=== PATIENT | male | born 1990 ===

== ENCOUNTER 2022-06-20 02:33 | Emergency (ER) | payer SELFPAY ==
--- OUTSIDE RECORDS SUMMARY | 2022-06-20 02:37 | XMS REPORT | Continuity of Care Document ---
:1990 Author Organization [facility] t Address [address] [facility] [address] [place] [address] Care Team Providers Name Role Phone Azeem Noriega MD Primary Care Physician TATA, TOBIN Attending Clinician Unavailable SAWYER LUZ Attending Clinician Unavailable AZEEM NORIEGA Attending Clinician Unavailable Tata PURVIS, Son Attending Clinician Wilbur Rosado MD Attending Clinician Azeem Noriega MD Attending Clinician Gem Urbina OD Attending Clinician Kacy PURVIS [facility] Attending Clinician Payers Payer Name Policy Type Policy Number Effective Date Expiration Date [facility] 2 [id number] 2020 00:00:00 PLANS Problems Condition Condition Condition Status Onset Resolution Last Treating Co mments Source Name Details Category Date Date Treatment Clinician Date Dyslipidem Dyslipidem Disease Active Dimitrios blair ia ia 3-22 Seybold 00:00: 00 Morbid Morbid Disease Active Sharon obesity obesity 9-17 Seybold 00:00: 00 Obstructiv Obstructiv Disease Active 2016-04 Overview : Sharon rowland sleep e sleep 04-22 Kaushal harris apnea apnea 00:00: g of this 00 note might be different from the original. Sever AHI 44 Family Family Disease Active Sharon history of history of 4-17 Se ybold ischemic ischemic 00:00: heart heart 00 disease disease (IHD) (IHD) Allergies, Adverse Reactions, Alerts This patient has no known allergies or adverse reactions. Social History Social Habit Start Date Stop Date Quantity Comments Source Alcohol intake 2017-04-03 2017-04-03 Current Gnosticist 00:00:00 00:00:00 non-drinker of Hospital alcohol (finding) Tobacco use and 2011-05-03 2011-05-03 Smokeless tobacco Ke lsey Seybold exposure 00:00:00 00:00:00 non-user Sex Ass[birth year] Gnostic[facility] 00:00:00 00:00:00 Hospital Smoking Status Start Date Stop Date Source Never smoked tobacco Sharon Laresyb old Medications Ordered Filled Start Stop Current Ordering Indication Dosage Frequency Signature Comments Components Source Medication Medication Date Date Medication? Clinician (SIG) Name Name Multiple Yes Take by Sharon Vitamins-Mi 3-22 mouth Seybold nerals 16:07: daily (MULTI-DUSTIN 27 MIN GUMMIES OR) Bupropion Yes [id number] TAKE 1 K elsey HCL XL 150 2-03 TABLET BY Seyb old MG OR TB24 00:00: MOUTH 00 EVERY DAY IN THE MORNING Multiple 2020-04 Yes Take by Sharon Vitamins-Mi 0-29 mouth Seybold nerals 16:21: daily (MULTI-DUSTIN 01 MIN GUMMIES OR) Bupropion 2020-04 Yes [id number] 150mg Take 1 Sharon HCL XL 150 0-13 tablet Seybold MG OR TB24 00:00: (150 mg 00 total) by mouth every morning Bupropion 2020-04 Yes [id number] 150mg Take 1 Sharon HCL XL 150 0-13 tablet Seybold MG OR TB24 00:00: (150 mg 00 total) by mouth every morning Tobramycin- 2020-04- No [id number] 1[drp] Place 1 Sharon Dexamethaso 0-04 10-12 [id number] drop into Seybold ne 00:00: 04:59 the right (TobraDex) 00 :00 eye 4 0.3-0.1 % times ophthalmic daily for Suspension 7 days Amoxicillin Yes [id number] 1{tbl} Take 1 Sharon -Pot 9-27 tablet by Seybold Clavulanate 00:00: mouth 3 (Augmentin) 00 times 500-125 MG daily oral Tablet Amoxicillin 0 Yes [id number] 1{tbl} Take 1 Sharon -Pot 9-27 tablet by Seybold Clavulanate 00:00: mouth 3 (Augmentin) 00 times 500-125 MG daily oral Tablet Amoxicillin 2020-0 Yes [id number] 1{tbl} Take 1 Sharon -Pot 9-27 tablet by Seybold Clavulanate 00:00: mouth 3 (Augmentin) 00 times 500-125 MG daily oral Tablet Amoxicillin 0 202- No [id number] 1{tbl} Take 1 Sharon -Pot 9-27 10-29 tablet by Seybold Clavulanate 00:00: 00:00 mouth 3 (Augmentin) 00 :00 times 500-125 MG daily oral Tablet FLUTICASONE 2020-0 Yes 2 sprays Ke lsey PROPIONATE, 3-16 each Seybold NASAL, 00:00: nostril (Flonase) 00 qday 50 MCG/ACT nasal Suspension FLUTICASONE 0 Yes 2 sprays Ke lsey PROPIONATE, 3-16 each Seybold NASAL, 00:00: nostril (Flonase) 00 qday 50 MCG/ACT nasal Suspension FLUTICASONE 2020-0 Yes 2 sprays Ke lsey PROPIONATE, 3-16 each Seybold NASAL, 00:00: nostril (Flonase) 00 qday 50 MCG/ACT nasal Suspension FLUTICASONE 2020-0 Yes 2 sprays Ke lsey PROPIONATE, 3-16 each Seybold NASAL, 00:00: nostril (Flonase) 00 qday 50 MCG/ACT nasal Suspension FLUTICASONE 2020-0 Yes 2 sprays Ke lsey PROPIONATE, 3-16 each Seybold NASAL, 00:00: nostril (Flonase) 00 qday 50 MCG/ACT nasal Suspension FLUTICASONE 2020-0 Yes 2 sprays Ke lsey PROPIONATE, 3-16 each Seybold NASAL, 00:00: nostril (Flonase) 00 qday 50 MCG/ACT nasal Suspension Immunizations Ordered Immunization Filled Immunization Date Status Commen ts Source Name Name Tdap- (Boostrix, 2013-07-29 Completed Sharon S eybold Adacel) 00:00:00 Meningococcal 2013-07-29 Completed [facility] Vaccine- 00:00:00 Conjugate(Menactra) Tdap- (Boostrix, 2013-07-29 Completed Sharon S eybold Adacel) 00:00:00 Meningococcal 2013-07-29 Completed [facility] Vaccine- 00:00:00 Conjugate(Menactra) Tdap- (Boostrix, 2013-07-29 Completed Sharon S eybold Adacel) 00:00:00 Meningococcal 2013-07-29 Completed [facility] Vaccine- 00:00:00 Conjugate(Menactra) Tdap- (Boostrix, 2013-07-29 Completed Sharon S eybold Adacel) 00:00:00 Meningococcal 2013-07-29 Completed [facility] Vaccine- 00:00:00 Conjugate(Menactra) Tdap- (Boostrix, 2013-07-29 Completed Sharon S eybold Adacel) 00:00:00 Meningococcal 2013-07-29 Completed [facility] Vaccine- 00:00:00 Conjugate(Menactra) Tdap- (Boostrix, 2013-07-29 Completed Sharon S eybold Adacel) 00:00:00 Meningococcal 2013-07-29 Completed [facility] Vaccine- 00:00:00 Conjugate(Menactra) Tdap- (Boostrix, 2007-03-30 Completed Sharon S eybold Adacel) 00:00:00 Tdap- (Boostrix, 2007-03-30 Completed Sharon S eybold Adacel) 00:00:00 Tdap- (Boostrix, 2007-03-30 Completed Sharon S eybold Adacel) 00:00:00 Tdap- (Boostrix, 2007-03-30 Completed Sharon S eybold Adacel) 00:00:00 Tdap- (Boostrix, 2007-03-30 Completed Sharon S eybold Adacel) 00:00:00 Tdap- (Boostrix, 2007-03-30 Completed Sharon S eybold Adacel) 00:00:00 Vital Signs Vital Name Observation Time Observation Value Comments Source Systolic blood pressure 2021-07-03 21:13:00 128 mm[Hg] Sharon Seybold Diastolic blood 2021-07-03 21:13:00 82 mm[Hg] Kelse y Seybold pressure Heart rate 2021-07-03 21:13:00 90 /min Sharon S eybold Body temperature 2021-07-03 21:13:00 36.89 Iliana Sheba ey Seybold Respiratory rate 2021-07-03 21:13:00 16 /min Sheba ey Seybold Body height 2021-07-03 21:13:00 172.7 cm Sharon S eybold Body weight 2021-07-03 21:13:00 163.749 kg Sharon S eybold BMI 2021-07-03 21:13:00 54.89 kg/m2 Sharon S eybold Systolic blood pressure 2021-02-09 21:19:00 120 mm[Hg] Sharon Seybold Diastolic blood 2021-02-09 21:19:00 80 mm[Hg] Kelse y Seybold pressure Heart rate 2021-02-09 21:19:00 86 /min Sharon S eybold Body temperature 2021-02-09 21:19:00 36.94 Iliana Sheba ey Seybold Respiratory rate 2021-02-09 21:19:00 16 /min Sheba ey Seybold Body height 2021-02-09 21:19:00 172.7 cm Sharon S eybold Body weight 2021-02-09 21:19:00 158.759 kg Sharon S eybold BMI 2021-02-09 21:19:00 53.22 kg/m2 Sharon S eybold Oxygen saturation in 2021-02-09 21:19:00 96 /min Sharon Seybold Arterial blood by Pulse oximetry Procedures This patient has no known procedures. Plan of Care Planned Activity Planned Date Details Comments Source Future Scheduled 2022-03-30 [facility] 08:53:32 (#1) [code = COVID-19 VACCINE (#1)] Future Scheduled 2022-03-30 INFLUENZA VACCINE Method [facility] Test 08:53:32 [code = INFLUENZA VACCINE] Encounters Start End Encounter Admission Attending Care Care Encounter Source Date/Time Date/Time Type Type Clinicians Facility Department ID 2022-01-03 2022-01-03 Outpatient TOBIN ESCALONA SHARON [id number] Sharon 16:15:00 16:15:00 Seybol d 2021-08-27 2021-08-27 Outpatient SUKH SHARON ULRICH [id number] Sharon 09:00:00 09:00:00 SAWYER Seybol d 2021-07-07 2021-07-07 Outpatient NORIEGA, SHARON ULRICH [id number] Sharon 00:00:00 00:00:00 AZEEM Seybol d 2021-07-03 2021-07-03 Office Tobin Escalona SANTI RODRIGUEZ [id number] Sharon 16:15:00 16:30:00 Visit MEDICAL & [id number] Seybold DIAGNOSTI [id number] C CENTER [id number] 2021-05-17 2021-05-17 Outpatient NORIEGA, SHARON ULRICH [id number] Sharon 00:00:00 00:00:00 AZEEM Seybol d 2021-03-06 2021-03-06 Outpatient LEANN SHARON LURICH [id number] Sharon 16:15:00 16:15:00 AZEEM Seybol d 2021-02-09 2021-02-09 Office SANTI Rosado [id number] Sharon 16:16:53 16:31:53 Visit Wilbur MEDICAL & [id number] Seybold DIAGNOSTI [id number] C CENTER [id number] 2021-01-24 2021-01-24 Telemedici SANTI Noriega [id number] Sharon 10:47:50 10:55:39 ne Azeem Villarreal MEDICAL & [id number] Seybold DIAGNOSTI [id number] C CENTER [id number] 2021-01-15 2021-01-15 Office SANTI Urbina [id number] Sharon 08:25:27 08:45:27 [place] [id number] Seybold DIAGNOSTI [id number] C CENTER [id number] 2021-01-08 2021-01-08 Office SANTI Urbina [id number] Sharon 08:26:15 08:46:15 Visit [place] [id number] Seybold DIAGNOSTI [id number] C CENTER [id number] 2020-12-19 2020-12-19 Office Brian Woodruff [id number] Sharon 16:06:12 16:21:12 Visit MEDICAL & [facility].1.13.13 Seybold DIAGNOSTI [id number] C CENTER [id number] Results This patient has no known results.
--- NOTE | 2022-06-20 14:52 | RAD REPORT ---
EXAM DESCRIPTION: RAD - Chest Pa And Lat (2 Views) - 06/20/2022 3:15 am CLINICAL HISTORY: Chest pain;Cough COMPARISON: None. FINDINGS: Frontal and lateral radiographic views of the chest. Cardiomediastinal silhouette: Cardiomegaly. Lungs: No consolidation, pneumothorax, or pleural effusion. Low lung volumes. Bones: No acute osseous abnormality. Upper abdomen: No abnormality identified. IMPRESSION: 1. No acute pneumonic process identified. Cardiomegaly. Electronically signed by: Ramon Hou 06/20/2022 3:32 AM AIRCRAFT INSPECTOR Due to temporary technical issues with the PACS/Fluency reporting system, reports are being signed by the in house radiologists without review as a courtesy to insure prompt reporting. The interpreting radiologist is fully responsible for the content of the report.
--- NOTE | 2022-07-05 15:33 | ER ---
Nurse's Notes [facility] Name: Emiliano Corona Age: 31 yrs Sex: Male : 1990 Arrival Date: 06/20/2022 Time: 02:39 Bed IW1 Private MD: Diagnosis: Acute upper respiratory infection, unspecified Presentation: 06/20 03:21 Chief complaint: Patient states: he has had a cough x 3 weeks, last night had temp of bb 99.2 with a headache has been using OTC medications with no relief had a [facility] appt and was given azithromycin but it is not working. Coronavirus screen: Client presents with at least one sign or symptom that may indicate coronavirus-19. Ebola Screen: No symptoms or risks identified at this time. Initial Sepsis Screen: Does the patient meet any 2 criteria? No. Patient's initial sepsis screen is negative. Does the patient have a suspected source of infection? No. Patient's initial sepsis screen is negative. Risk Assessment: Do you want to hurt yourself or someone else? Patient reports no desire to harm self or others. Onset of symptoms was May 2022. 03:21 Method Of Arrival: Ambulatory bb 03:21 Acuity: SE 4 bb Triage Assessment: 03:24 General: Appears in no apparent distress. obese, Behavior is calm, cooperative. Pain: bb Denies pain. Neuro: Level of Consciousness is awake, alert, obeys commands, Oriented to person, place, time, situation. Cardiovascular: Capillary refill < 3 seconds Patient's skin is warm and dry. Respiratory: Respiratory effort is even, unlabored, Respiratory pattern is regular. Derm: Skin is pink, warm \T\ dry. Musculoskeletal: Circulation, motion, and sensation intact. Historical: - Allergies: 03:24 No Known Allergies; bb - Home Meds: 03:24 None [Active]; bb - Immunization history:: Moderna x 2. - Social history:: Smoking status: Patient denies any tobacco usage or history of. Assessment: 03:28 Reassessment: pt verbalized understanding of and agrees to plan of care discharge bb instructions given pt ambulated with steady gait to exit accompanied by spouse. Vital Signs: 03:21 BP 142 / 83; Pulse 104; Resp 20 S; Temp 98.7(O); Pulse Ox 95% on R/A; Weight 163.29 kg bb (R); Height 5 ft. 8 in. (R); 03:21 Body Mass Index 54.74 (163.29 kg, 172.72 cm) bb ED Course: 02:39 Patient arrived in ED. ag3 02:45 Jung Morales MD is Attending Physician. bs3 03:17 XRAY Chest Pa And Lat (2 Views) In Process Unspecified. EDMS 03:24 Triage completed. bb 03:[address] band placed on Dr Morales in triage for pt evaluation and discussion of findings and bb recommendations. 03:29 No provider procedures requiring assistance completed. Patient did not have IV access bb during this emergency room visit. Administered Medications: No medications were administered Medication: 03:30 VIS not applicable for this client. bb Outcome: 03:25 Discharge ordered by . bs3 03:30 Discharged to home ambulatory, with family. bb 03:30 Condition: stable 03:30 Discharge instructions given to patient, Instructed on discharge instructions, follow up and referral plans. Demonstrated understanding of instructions, follow-up care. 03:30 Patient left the ED. bb Signatures: Dispatcher [employer] EDImelda Hinojosa, RN RN Suha Plaza ag3 Jung Morales MD MD bs3
--- NOTE | 2022-07-05 15:34 | EDPHYS ---
Physician Documentation [facility] Name: Emiliano Corona Age: 31 yrs Sex: Male : 1990 Arrival Date: 06/20/2022 Time: 02:39 Bed IW1 Private MD: ED Physician Jung Morales HPI: 06/20 02:51 This 31 yrs old Male presents to ER via Unassigned with complaints of Fever, bs3 Cough. 02:51 31-year-old male no significant past medical history presents with cough for bs3 approximately 3 weeks fever headache body aches that started today no sick contacts no recent travel he was taking Flonase for his cough but thought he was getting better however today he got worse he denies difficulty breathing he denies any nausea vomiting or chest pain. Historical: - Allergies: 03:24 No Known Allergies; bb - Home Meds: 03:24 None [Active]; bb - Immunization history:: Moderna x 2. - Social history:: Smoking status: Patient denies any tobacco usage or history of. ROS: 02:51 Constitutional: Positive for fever, no chills bs3 02:51 All other systems are negative. Exam: 02:51 Constitutional: This is a well developed, well nourished patient who is awake, alert, bs3 and in no acute distress. Head/Face: Normocephalic, atraumatic. Eyes: Pupils equal round and reactive to light, extra-ocular motions intact. Lids and lashes normal. ENT: mmm, no posterior phyarngeal erythema Neck: Trachea midline, no thyromegaly, no neck stiffness Chest/axilla: Normal chest wall appearance and motion. Nontender with no deformity. No lesions are appreciated. Cardiovascular: Tachycardic no murmur Respiratory: Lungs have equal breath sounds bilaterally, clear to auscultation, no respiratory distress Abdomen/GI: Soft, non-tender, no rebound or guarding MS/ Extremity: Pulses equal, no cyanosis. Neurovascular intact. Full, normal range of motion. Neuro: Awake and alert, GCS 15, oriented to person, place, time, and situation. Cranial nerves II-XII grossly intact. Motor strength 5/5 in all extremities. Sensory grossly intact. Psych: Awake, alert, with orientation to person, place and time. Behavior, mood, and affect are within normal limits. Vital Signs: 03:21 BP 142 / 83; Pulse 104; Resp 20 S; Temp 98.7(O); Pulse Ox 95% on R/A; Weight 163.29 kg bb (R); Height 5 ft. 8 in. (R); 03:21 Body Mass Index 54.74 (163.29 kg, 172.72 cm) bb MDM: 02:44 Patient medically screened. bs3 02:51 Differential diagnosis: viral Infection, bacterial infection, URI, bronchitis, bs3 pneumonia. Data reviewed: vital signs, nurses notes. ED course: Given that his symptoms were getting better and then got worse will rule out pneumonia with chest x-ray he likely had 1 viral illness and now has recurrent viral illness he is not high risk for decompensation from flu or COVID and therefore will not test for specific viral illnesses unlikely to be myocarditis, meningitis or other life-threatening pathology his symptoms are consistent with a viral infection. 03:12 ED course: X-ray negative for acute pneumonia as interpreted by myself Considered bs3 antibiotics but his symptoms are likely viral in nature Return precautions given. 03:24 ED course: Patient hypertensive patient notes hypertension in the past advised patient bs3 to follow-up with primary care he was tachycardic however he felt headache cough body aches I considered PE but he is otherwise no risk factors except for his obesity low risk per wells. Advised return prec.. 06/20 02:51 Order name: XRAY Chest Pa And Lat (2 Views) bs3 Administered Medications: No medications were administered Disposition Summary: 06/20/22 03:25 Discharge Ordered Location: Home bs3 Problem: new bs3 Symptoms: have improved bs3 Condition: Stable bs3 Diagnosis - Acute upper respiratory infection, unspecified bs3 Followup: bs3 - With: Private Physician - When: 48 Hours - Reason: Re-evaluation by your physician Discharge Instructions: - Discharge Summary Sheet bs3 - Upper Respiratory Infection, Adult bs3 Forms: - Work release form bs3 - Medication Reconciliation Form bs3 - Thank You Letter bs3 - Antibiotic Education bs3 - Prescription Opioid Use bs3 Signatures: Dispatcher [employer] Imelda Naylor RN RN bb Stein, Brandon, MD MD bs3
== END 2022-06-20 03:30 | disposition home or self-care (01) ==
LOC: ER 02:33
DX: J06.9 Acute upper respiratory infection, unspecified (principal)
CPT/HCPCS: 71046; 99283

== ENCOUNTER 2023-01-17 19:39 | Inpatient (IN) | payer SELFPAY ==
--- OUTSIDE RECORDS SUMMARY | 2023-01-17 20:02 | XMS REPORT | Continuity of Care Document ---
:1990 Author Organization [facility] t Address [address] [facility] [address] [place] [address] Care Team Providers Name Role Phone Asked, No Pcp Primary Care Physician Unavailable ROD HUNT Attending Clinician Unavailable TJ HUSSEIN Attending Clinician Unavailable MD LARRY Attending Clinician Unavailable ALETHEA HOROWITZ Attending Clinician Unavailable LAB90 Attending Clinician Unavailable AZEEM NORIEGA Attending Clinician Unavailable JUSTINA TREVIZO Attending Clinician Unavailable TATA, TOBIN Attending Clinician Unavailable SAWYER LUZ Attending Clinician Unavailable Tata PURVIS, Son Attending Clinician Wilbur Rosado MD Attending Clinician Azeem Noriega MD Attending Clinician Gem Urbina OD Attending Clinician Brian Woodruff MD Attending Clinician Payers Payer Name Policy Type Policy Number Effective Date Expiration Date S isela [employer] BNFT 2 [id number] 2022 00:00:00 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 2 [id number] 2020 00:00:00 PLANS Problems Condition Condition Condition Status Onset Resolution Last Treating Co mments Source Name Details Category Date Date Treatment Clinician Date Palpitatio Palpitatio Disease Active K elsey ns ns 5-16 Seybold 00:00: - 00 Externa l Prediabete Prediabete Disease Active Dimitrios blair s s 5-16 Seybold 00:00: - 00 Externa l Subclinica Subclinica Disease Active K nauny l l 5-16 Seybold hypothyroi hypothyroi 00:00: - dism dism 00 Externa l Dermatitis Dermatitis Disease Active Dimitrios blair 4-05 Seybold 00:00: - 00 Externa l Dyslipidem Dyslipidem Disease Active Dimitrios blair ia ia 3-22 Seybold 00:00: - 00 Externa l Morbid Morbid Disease Active Sharon obesity obesity 9-17 Seybold 00:00: - 00 Externa l Obstructiv Obstructiv Disease Active 2016-04 Overview : Sharon rowland sleep e sleep 04-22 Formattin Seybo ld apnea apnea 00:00: g of note Externa might be l different from the original. Sever AHI 44 Family Family Disease Active Sharon history of history of 4-17 Se ybold ischemic ischemic 00:00: - heart heart 00 Externa disease disease l (IHD) (IHD) Depression Depression Disease Active K rossy Seybold - Externa l Allergies, Adverse Reactions, Alerts Allergy Allergy Status Severity Reaction(s) Onset Inactive Treating Comm ents Source Name Type Date Date Clinician Bupropio Propensi Active Eyes Sharon n ty to 4-11 irritated Seybold adverse 00:00: , blurry - reaction 00 vision, Externa s to sensitive l drug to light. Social History Social Habit Start Date Stop Date Quantity Comments Source Gender identity 2021-07-01 Identifies as Sharon Thompson - 21:33:40 male gender External (finding) [facility] Tobacco use and 2022-07-17 2022-07-17 Smokeless tobacco Ke jodie Seybold - exposure 00:00:00 00:00:00 non-user External Education 2022-07-17 2022-07-17 18 Sharon Huynhold - 00:00:00 00:00:00 External History of Social 2018-03-01 2018-03-[address] function 00:00:00 00:00:00 Hospital Alcohol intake 2017-04-03 2017-04-03 Current Yarsanism 00:00:00 00:00:00 non-drinker of Hospital alcohol (finding) Sex Ass[birth year] At [birth year] [facility] 00:00:00 00:00:00 Hospital Smoking Status Start Date Stop Date Source Never smoked tobacco Sharon Seyb old - External Medications Ordered Filled Start Stop Current Ordering Indication Dosage Frequency Signature Comments Components Source Medication Medication Date Date Medication? Clinician (SIG) Name Name Semaglutide Yes [id number] .25mg Inject Sharon -Weight 5-16 0.25 mg Seybold Management 00:00: into the - (Wegovy) 00 skin once Mattress Stripper a 0.25 a week l MG/0.5ML subcutaneou s Solution Auto-inject or Semaglutide Yes [id number] .25mg Inject Sharon -Weight 5-16 0.25 mg Seybold Management 00:00: into the - (Wegovy) 00 skin once Mattress Stripper a 0.25 a week l MG/0.5ML subcutaneou s Solution Auto-inject or Multiple 2022- No Take by Kelse y Vitamins-Mi 4-05 04-05 mouth Seybol d nerals 15:54: 00:00 daily - (MULTI-DUSTIN 52 :00 Externa MIN GUMMIES l OR) Bupropion Yes [id number] 150mg Take 1 Sharon HCL XL 150 4-05 tablet Seybold MG OR TB24 00:00: (150 mg - 00 total) by Externa mouth l every morning Semaglutide Yes [id number] .25mg Inject Sharon -Weight 4-05 0.25 mg Seybold Management 00:00: into the - (Wegovy) 00 skin once Mattress Stripper a 0.25 a week l MG/0.5ML subcutaneou s Solution Auto-inject or Ketoconazol Yes [id number] Apply to Sharon e 2 % apply 4-05 the Seybold externally 00:00: affected - Cream 00 area twice Externa daily for l 10 days Ketoconazol 2022-0 Yes [id number] Apply to Sharon e 2 % apply 4-05 the Seybold externally 00:00: affected - Cream 00 area twice Externa daily for l 10 days Ketoconazol Yes [id number] Apply to Sharon e 2 % apply 4-05 the Seybold externally 00:00: affected - Cream 00 area twice Externa daily for l 10 days Semaglutide 2022- No [id number] .25mg Inject Sharon -Weight 4-05 05-16 0.25 mg Seybold Management 00:00: 00:00 into the - (Wegovy) 00 :00 skin once Mattress Stripper a 0.25 a week l MG/0.5ML subcutaneou s Solution Auto-inject or Ketoconazol 2022- No [id number] Apply to Sharon e 2 % apply 07-17 04-05 the Seybold externally 00:00: 00:00 affected - Cream 00 :00 area twice Externa daily for l 10 days Ketoconazol 2022- No [id number] Apply to Sharon e 2 % apply 07-17 04-05 the Seybold externally 00:00: 00:00 affected - Cream 00 :00 area twice Externa daily for l 10 days Bupropion 2022- No [id number] TAKE 1 Sharon HCL XL 150 6-23 04-05 TABLET BY Sey bold MG OR TB24 00:00: 00:00 MOUTH - 00 :00 EVERY DAY Externa IN THE l MORNING Multiple Yes Take by Sharon Vitamins-Mi 3-22 mouth Seybold nerals 16:07: daily (MULTI-DUSTIN 27 MIN GUMMIES OR) Bupropion Yes [id number] TAKE 1 K elsey HCL XL 150 2-03 TABLET BY Seyb old MG OR TB24 00:00: MOUTH 00 EVERY DAY IN THE MORNING Multiple 2020-04 Yes Take by Sharon Vitamins-Mi 0-29 mouth Seybold nerals 16:21: daily (MULTI-DUSTIN 01 MIN GUMMIES OR) Bupropion 2020-04 Yes [id number] 150mg Take 1 Sharon HCL XL 150 0-13 tablet Seybold MG OR TB24 00:00: (150 mg 00 total) by mouth every morning Bupropion 2020-04 Yes [id number] 150mg Take 1 Sharon HCL XL 150 0-13 tablet Seybold MG OR TB24 00:00: (150 mg 00 total) by mouth every morning Tobramycin- 2020-04- No [id number] 1[drp] Place 1 Sharon Dexamethaso 0-04 10-12 [id number] drop into Seybold ne 00:00: 04:59 the right (TobraDex) 00 :00 eye 4 0.3-0.1 % times ophthalmic daily for Suspension 7 days Amoxicillin Yes [id number] 1{tbl} Take 1 Sharon -Pot 9-27 tablet by Seybold Clavulanate 00:00: mouth 3 (Augmentin) 00 times 500-125 MG daily oral Tablet Amoxicillin Yes [id number] 1{tbl} Take 1 Sharon -Pot 9-27 tablet by Seybold Clavulanate 00:00: mouth 3 (Augmentin) 00 times 500-125 MG daily oral Tablet Amoxicillin Yes [id number] 1{tbl} Take 1 Sharon -Pot 9-27 tablet by Seybold Clavulanate 00:00: mouth 3 (Augmentin) 00 times 500-125 MG daily oral Tablet Amoxicillin 2020- No [id number] 1{tbl} Take 1 Sharon -Pot 9-27 10-29 tablet by Seybold Clavulanate 00:00: 00:00 mouth 3 (Augmentin) 00 :00 times 500-125 MG daily oral Tablet FLUTICASONE Yes 2 sprays Ke lsey PROPIONATE, 3-16 [...] 00 qday 50 MCG/ACT nasal Suspension FLUTICASONE Yes 2 sprays Ke lsey PROPIONATE, 3-16 each Seybold NASAL, 00:00: nostril (Flonase) 00 qday 50 MCG/ACT nasal Suspension FLUTICASONE 0 Yes 2 sprays Ke lsey PROPIONATE, 3-16 each Seybold NASAL, 00:00: nostril (Flonase) 00 qday 50 MCG/ACT nasal Suspension FLUTICASONE 2022- No 2 sprays K elsey PROPIONATE, 3-16 04-05 each Seybold NASAL, 00:00: 00:00 nostril - (Flonase) 00 :00 qday Externa 50 MCG/ACT l nasal Suspension Vital Signs Vital Name Observation Time Observation Value Comments Source Body height 2022-10-08 16:03:00 172.7 cm Sharon guzmánbold - External Body weight 2022-10-08 16:03:00 166.47 kg Sharon guzmánbold - External BMI 2022-10-08 16:03:00 55.80 kg/m2 Sharon Kathia alejandra - External Systolic blood 2022-08-27 20:09:00 140 mm[Hg] Sharon Huynhold - pressure External Diastolic blood 2022-08-27 20:09:00 75 mm[Hg] Grant Thompson - pressure External Heart rate 2022-08-27 20:09:00 90 /min Sharon guzmánbold - External Body temperature 2022-08-27 20:09:00 37.39 Iliana Sheba guzmán Seybold - External Respiratory rate 2022-08-27 20:09:00 19 /min Sheba ey Seybold - External Body height 2022-08-27 20:09:00 172.7 cm Sharon guzmánbold - External Body weight 2022-08-27 20:09:00 170.099 kg Sharon guzmánbold - External BMI 2022-08-27 20:09:00 57.02 kg/m2 Sharon guzmánbokimberly - External Oxygen saturation in 2022-08-27 20:09:00 97 /min Sharon Thompson - Arterial blood by External Pulse oximetry Systolic blood 2022-07-17 20:50:00 136 mm[Hg] Sharon Seybold - pressure External Diastolic blood 2022-07-17 20:50:00 74 mm[Hg] Kelse y Seybold - pressure External Heart rate 2022-07-17 20:50:00 87 /min Sharon S eybold - External Body temperature 2022-07-17 20:50:00 37.06 Iliana Sheba ey Seybold - External Respiratory rate 2022-07-17 20:50:00 16 /min Sheba ey Seybold - External Body height 2022-07-17 20:50:00 172.7 cm Sharon S eybold - External Body weight 2022-07-17 20:50:00 170.552 kg Sharon S eybold - External BMI 2022-07-17 20:50:00 57.17 kg/m2 Sharon S eybold - External Oxygen saturation in 2022-07-17 20:50:00 98 /min Sharon Laresybold - Arterial blood by External Pulse oximetry Systolic blood 2021-07-03 21:13:00 128 mm[Hg] Sharon Seybold pressure Diastolic blood 2021-07-03 21:13:00 82 mm[Hg] Kelse [...] 54.89 kg/m2 Sharon S eybold Systolic blood 2021-02-09 21:19:00 120 mm[Hg] Sharon Seybold pressure Diastolic blood 2021-02-09 21:19:00 80 mm[Hg] Kelse y Seybold pressure Heart rate 2021-02-09 21:19:00 86 /min Sharon S eybold Body temperature 2021-02-09 21:19:00 36.94 Iliana Sheba ey Seybold Respiratory rate 2021-02-09 21:19:00 16 /min Sheba Thompson Body height 2021-02-09 21:19:00 172.7 cm Sharon roberts Body weight 2021-02-09 21:19:00 158.759 kg Sharon roberts BMI 2021-02-09 21:19:00 53.22 kg/m2 Sharon roberts Oxygen saturation in 2021-02-09 21:19:00 96 /min Sharon Thompson Arterial blood by Pulse oximetry Procedures This patient has no known procedures. Plan of Care Planned Activity Planned Date Details Comments Source Future Scheduled 2023-01-[address] [facility] Test 19:57:09 (#1) [code = INFLUENZA VACCINE (#1)] Future Scheduled 2023-01-17 [facility] (#1) [code = COVID-19 VACCINE (#1)] Future Scheduled 2022-03-30 [facility] 08:53:32 (#1) [code = COVID-19 VACCINE (#1)] Future Scheduled 2022-03-[address] [facility] Test 08:53:32 [code = INFLUENZA VACCINE] Encounters Start End Encounter Admission Attending Care Care Encounter Source Date/Time Date/Time Type Type Clinicians Facility Department ID 2023-01-08 2023-01-08 Outpatient SHARON HUNT [id number] Sharon 00:00:00 00:00:00 ROD Huynhol yu 2022-10-18 2022-10-18 Outpatient SHARON HUSSEIN [id number] Sharon 00:00:00 00:00:00 TJ Seybol d 2022-10-17 2022-10-17 Outpatient SHARON HUSSEIN [id number] Sharon 00:00:00 00:00:00 TJ Seybol d 2022-10-16 2022-10-16 Outpatient CONNER ULRICH [id number] Sharon 00:00:00 00:00:00 MD Amina SMITHol d 2022-10-08 2022-10-08 Outpatient SHARON HUSSEIN [id number] Sharon 11:00:00 11:00:00 TJ Seybol d 2022-10-07 2022-10-07 Outpatient KEENAN SHARON ULRICH [id number] Sharon 00:00:00 00:00:00 TJ Seybol d 2022-09-13 2022-09-13 Outpatient CARLOS MANUEL ALETHEA ULRICH [id number] Sharon 16:00:00 16:00:00 Seybol d 2022-08-27 2022-08-27 Outpatient LAB90 SHARON ULRICH [id number] Sharon 15:50:00 15:50:00 Seybol d 2022-08-27 2022-08-27 Outpatient PREBRENDA, SHARON ULRICH [id number] Sharon 15:15:00 15:15:00 ROD Seybol d 2022-08-09 2022-08-09 Outpatient ALETHEA HOROWITZ [id number] Sharon 16:00:00 16:00:00 Seybol d 2022-07-30 2022-07-30 Outpatient GILBERT, SHARON ULRICH [id number] Sharon 00:00:00 00:00:00 ROD Seybol d 2022-07-30 2022-07-30 Outpatient SHARON NORIEGA [id number] Sharon 00:00:00 00:00:00 AZEEM Seybol d 2022-07-29 2022-07-29 Outpatient LAB90 SHARON ULRICH [id number] Sharon 08:30:00 08:30:00 Seybol d 2022-07-26 2022-07-26 Outpatient ALETHEA HOROWITZ [id number] Sharon 16:00:00 16:00:00 Seybol d 2022-07-26 2022-07-26 Outpatient SHARON HUNT [id number] Sharon 00:00:00 00:00:00 ROD Seybol d 2022-07-25 2022-07-25 Outpatient ALETHEA HOROWITZ [id number] Sharon 00:00:00 00:00:00 Seybol d 2022-07-23 2022-07-23 Outpatient SHARON NORIEGA [id number] Sharon 00:00:00 00:00:00 AZEEM Seybol d 2022-07-19 2022-07-19 Outpatient ALETHEA HOROWITZ SHARON ULRICH [id number] Sharon 16:30:00 16:30:00 Seybol d 2022-07-19 2022-07-19 Outpatient JOSELINE SHARON ULRIHC [id number] Sharon 15:30:00 15:30:00 JUSTINA Seybol d 2022-07-19 2022-07-19 Outpatient JOSELINE SHARON ULRICH [id number] Sharon 14:45:00 14:45:00 JUSTINA Seybol d 2022-07-17 2022-07-17 Outpatient GILBERT SHARON ULRICH [id number] Sharon 16:00:00 16:00:00 ROD Seybol d 2022-01-03 2022-01-03 Outpatient TOBIN PAYTON SHARON ULRICH [id number] Sharon 16:15:00 16:15:00 Seybol d 2021-08-27 2021-08-27 Outpatient NAUNXANDERKALYAN SHARON ULRICH [id number] Sharon 09:00:00 09:00:00 SAWYER Seybol d 2021-07-07 2021-07-07 Outpatient SHARON NORIEGA [id number] Sharon 00:00:00 00:00:00 AZEEM Seybol d 2021-07-03 2021-07-03 Office Tobin Payton MICHAEL [id number] Sharon 16:15:00 16:30:00 Visit MEDICAL & [id number] Seybold DIAGNOSTI [id number] [facility] [id number] 2021-05-17 2021-05-17 Outpatient SHARON NORIEGA [id number] Sharon 00:00:00 00:00:00 AZEEM Seybol d 2021-03-06 2021-03-06 Outpatient SHARON NORIEGA [id number] Sharon 16:15:00 16:15:00 AZEEM Seybol d 2021-02-09 2021-02-09 Office Alonzo SANTI RODRIGUEZ [id number] Sharon 16:16:53 16:31:53 Visit Wilbur [facility] & [id number] Seybold DIAGNOSTI 1.2.7.2.686 [facility] [id number] 2021-01-24 2021-01-24 Telemedici SANTI Noriega [id number] Sharon 10:47:50 10:55:39 ne Azeem Villarreal MEDICAL & [id number] Seybold DIAGNOSTI [id number] C CENTER [id number] 2021-01-15 2021-01-15 Office Carlitos SANTI MICHAEL [id number] Sharon 08:25:27 08:45:27 Visit Gem [facility] & [id number] Seybold DIAGNOSTI [id number] C CENTER [id number] 2021-01-08 2021-01-08 Office Carlitos SANTI MICHAEL [id number] Sharon 08:26:15 08:46:15 Visit Gem [facility] & [id number] Seybold DIAGNOSTI [id number] C CENTER [id number] 2020-12-19 2020-12-19 Office Brian Woodruff SANTI MICHAEL [id number] Sharon 16:06:12 16:21:12 Visit MEDICAL & [id number] Seybold DIAGNOSTI [id number] C CENTER [id number] Results This patient has no known results.
[2023-01-17 20:23] LABS: Absolute Lymphocytes (CBC) 1.8 K/uL (0.7-4.9); Hematocrit 40.6 % (39.6-49.0); Lymphocytes % 12.6 % (15.3-44.8); MPV 8.3 fL (7.6-11.3); Platelets 309 thou/uL (152-406); RBC Red Blood Cell Count 4.67 M/uL (4.33-5.43)
[2023-01-17 20:40] LABS: Albumin 3.7 g/dL (3.4-5.0); Bilirubin Total 0.8 mg/dL (0.2-1.0); Potassium 3.9 mEq/L (3.5-5.1); Protein, Total 7.8 g/dL (6.4-8.2)
[2023-01-17] MEDS ORDERED: KETOROLAC 30 MG/ML INJ ONE (20:53)
[2023-01-17] MEDS ORDERED: ONDANSETRON 4 MG/2 ML VIAL ONE (20:53)
[2023-01-17] MEDS ORDERED: NA CHLORIDE 0.9% 1,000 ML ONE ×2 (20:53→23:11)
[2023-01-17 20:56] LABS: Specific Gravity 1.025 (1.005-1.030); Urine Bacteria None Seen /HPF (<20); Urine Bilirubin NEGATIVE (Negative); Urine Blood Negative (Negative); Urine Clarity Clear (Clear); Urine Color Light-Yellow (Yellow); Urine Glucose NEGATIVE (Negative); Urine Mucus Slight /HPF (None Seen); Urine Protein NEGATIVE (Negative); Urine RBC <5 /HPF (None Seen); Urine Urobilinogen Normal (Normal)
--- NOTE | 2023-01-17 21:16 | RAD REPORT ---
EXAM DESCRIPTION: CT - Abdomen Pelvis W Contrast - 01/17/2023 9:02 pm CLINICAL HISTORY: Abdominal pain COMPARISON: none. TECHNIQUE: Computed axial tomography of the abdomen pelvis was obtained. 100 cc Isovue-300 was admin istered intravenously. Oral contrast was not requested which limits evaluation of bowel and appendix All CT scans are performed using dose optimization technique as appropriate and may include automated exposure control or mA/KV adjustment according to patient size. FINDINGS: The liver, spleen, pancreas, adrenal and kidneys appear unremarkable. There is no evidence of diverticulitis. The appendix is thickened with moderate stranding in the adjacent fat. The appendix extends medially from the cecum. No abscess. No free air. IMPRESSION: Appendicitis
[2023-01-17] MEDS ORDERED: NA CHLORIDE 0.9% 100 ML ONE (21:56)
[2023-01-17] MEDS ORDERED: PIPERACIL/TAZO 3.375 GM VIAL IV ONE (21:56)
--- NOTE | 2023-01-17 22:44 | ER ---
Nurse's Notes [facility] Name: Emiliano Corona Age: 32 yrs Sex: Male : 1990 Arrival Date: 01/17/2023 Time: 19:39 Bed 15 Private MD: Diagnosis: Unspecified acute appendicitis Presentation: 01/17 19:52 Chief complaint: Patient states: woke up this morning with abd pain all over, thought iw it was gas pain, by 1230 today I felt nauseous, pain was worse, pain is more localized to lower abdomen, diarrhea this morning , no vomiting. Coronavirus screen: At this time, the client does not indicate any symptoms associated with coronavirus-19. Ebola Screen: Patient negative for fever greater than or equal to 101.5 degrees Fahrenheit, and additional compatible Ebola Virus Disease symptoms Patient denies exposure to infectious person. Patient denies travel to an Ebola-affected area in the 21 days before illness onset. No symptoms or risks identified at this time. Initial Sepsis Screen: Does the patient meet any 2 criteria? No. Patient's initial sepsis screen is negative. Does the patient have a suspected source of infection? No. Patient's initial sepsis screen is negative. Risk Assessment: Do you want to hurt yourself or someone else? Patient reports no desire to harm self or others. Onset of symptoms was January 17, 2023. 19:52 Method Of Arrival: Ambulatory iw 19:52 Acuity: SE 3 iw Triage Assessment: 22:44 Pain: Also complains of. iw Historical: - Allergies: 19:53 No Known Allergies; iw - Home Meds: 19:53 None [Active]; iw - PMHx: 19:53 None; iw - PSHx: 19:53 None; iw - Social history:: Smoking status: Patient denies any tobacco usage or history of. - Family history:: not pertinent. Screenin:08 [facility] ED Fall Risk Assessment (Adult) History of falling in the last 3 months, mb9 including since admission No falls in past 3 months (0 pts) Confusion or Disorientation No (0 pts) Intoxicated or Sedated No (0 pts) Impaired Gait No (0 pts) Mobility Assist Device Used No (0 pt) Altered Elimination No (0 pt) Score/Fall Risk Level 0 - 2 = Low Risk Oriented to surroundings, Maintained a safe environment, Educated pt \T\ family on fall prevention, incl call for assistance when getting out of bed. Abuse screen: Denies threats or abuse. Nutritional screening: No deficits noted. Tuberculosis screening: No symptoms or risk factors identified. Assessment: 20:08 General: Appears in no apparent distress. Behavior is calm, cooperative. Pain: iw Complains of pain in abdomen Pain currently is 7 out of 10 on a pain scale. Neuro: Level of Consciousness is awake, alert, obeys commands, Oriented to person, place, time, situation, Moves all extremities. Full function. Cardiovascular: Patient's skin is warm and dry. Respiratory: Respiratory effort is even, unlabored, Respiratory pattern is regular, symmetrical. GI: Abdomen is non-distended, obese, Reports lower abdominal pain, bloating, nausea. Derm: Skin is intact, is healthy with good turgor. Musculoskeletal: Range of motion: intact in all extremities. 21:20 Reassessment: Patient appears in no apparent distress at this time. Patient and/or mb9 family updated on plan of care and expected duration. Pain level reassessed. Patient is alert, oriented x 3, equal unlabored respirations, skin warm/dry/pink. 22:30 Reassessment: Patient appears in no apparent distress at this time. Patient and/or iw family updated on plan of care and expected duration. Pain level reassessed. Patient is alert, oriented x 3, equal unlabored respirations, skin warm/dry/pink. Patient states feeling better. Vital Signs: 19:52 BP 159 / 104; Pulse 92; Resp 16; Temp 98.5; Pulse Ox 96% on R/A; Weight 163.29 kg; iw Height 5 ft. 8 in. ; Pain 7/10; 20:12 BP 119 / 65; Pulse 88; Resp 18; Pulse Ox 100% on R/A; mb9 22:44 BP 126 / 61; Pulse 89; Resp 16; Temp 98.5; Pulse Ox 100% on R/A; iw 19:52 Body Mass Index 54.74 (163.29 kg, 172.72 cm) iw 19:52 Pain Scale: Adult iw Clyde Coma Score: 20:45 Eye Response: spontaneous(4). Motor Response: obeys commands(6). Verbal Response: sp4 oriented(5). Total: 15. ED Course: 19:45 Patient arrived in ED. iw 19:53 Triage completed. iw 19:54 Arm band placed on. iw 20:08 Carmen Rosales, RN is Primary Nurse. mb9 20:09 Patient has correct armband on for positive identification. Provided Education on: IV iw insertion . 20:09 Initial lab(s) drawn, by me, sent to lab. Inserted saline lock: 22 gauge in right iw antecubital area, using aseptic technique. Blood collected. 20:12 No provider procedures requiring assistance completed. mb9 20:19 Nitesh Alvarez MD is Attending Physician. sp4 21:03 CT Abd/Pelvis - IV Contrast Only In Process Unspecified. EDMS 22:43 Manny Cochran MD is Hospitalizing Provider. sp4 22:44 Patient admitted, IV remains in place. iw Administered Medications: 21:23 Drug: Ketorolac IVP 30 mg IVP once Route: IVP; Site: right antecubital; mb9 22:45 Follow up: Response: No adverse reaction; Pain is decreased iw 21:24 Drug: NS 0.9% IV 1000 ml IV at 1 bolus Per protocol; 1000 mL bolus Route: IV; Rate: 1 mb9 bolus; Site: right antecubital; 22:45 Follow up: IV Status: Infusion continued upon admission iw 21:24 Drug: Ondansetron IVP 8 mg IVP once; over 2 minutes Route: IVP; Site: right antecubital;mb9 22:45 Follow up: Response: No adverse reaction iw 21:52 Drug: Piperacillin-Tazobactam IVPB 3.375 grams IVPB once over 60 mins; (mix in NS 100 iw mL) Route: IVPB; Infused Over: 60 mins; Site: right antecubital; 22:45 Follow up: IV Status: Completed infusion iw Medication: 20:09 VIS not applicable for this client. iw Outcome: 22:44 Decision to Hospitalize by Provider. sp4 22:44 Admitted to OR accompanied by nurse, family with patient, via wheelchair, iw 22:44 Condition: good 22:44 Discharge instructions given to patient, family, Instructed on the need for admit, 22:55 Patient left the ED. iw Signatures: Dispatcher [employer] EDMónica Coker RN RN iw Carmen Rosales, MICAELA RN mb9 Potepalov, Nitesh, MD MD sp4
--- NOTE | 2023-01-17 22:44 | EDPHYS ---
Physician Documentation [facility] Name: Emiliano Corona Age: 32 yrs Sex: Male : 1990 Arrival Date: 01/17/2023 Time: 19:39 Bed 15 Private MD: ED Physician Nitesh Alvarez HPI: 01/17 20:19 This 32 yrs old Male presents to ER via Ambulatory with complaints of sp4 Headache. 20:45 32-year-old male with no significant past medical history except prediabetes, presents sp4 with a cute onset abdominal pain starting in the morning associated with nausea and overall feeling unwell. Primary complaint is actually abdominal pain and not the headache as stated in the chief complaint section. Patient reports his abdominal pain is mostly lower bilateral and suprapubic in location has intensified throughout the day associated with nausea and one episode of diarrhea. Patient denied any fever and he took some ondansetron prior to arrival he had to check out of work early because of worsening abdominal pain. Patient is not on any prescribed medications at home has no history of prior abdominal surgery. . Historical: - Allergies: 19:53 No Known Allergies; iw - Home Meds: 19:53 None [Active]; iw - PMHx: 19:53 None; iw - PSHx: 19:53 None; iw - Social history:: Smoking status: Patient denies any tobacco usage or history of. - Family history:: not pertinent. ROS: 20:45 Constitutional: Negative for fever, chills, and weight loss, Abdomen/GI: Negative for sp4 vomiting, and constipation, there is positive diarrhea, lower abdominal pain and nausea 20:45 All other systems are negative, Exam: 20:45 Constitutional: This is a well developed, well nourished patient who is awake, alert, sp4 and in no acute distress. Head/Face: Normocephalic, atraumatic. Eyes: Pupils equal round and reactive to light, extra-ocular motions intact. Lids and lashes normal. Conjunctiva and sclera are not injected. Cornea within normal limits. Periorbital areas with no swelling, redness, or edema. ENT: Nares patent. No nasal discharge, no septal abnormalities noted. Tympanic membranes are normal and external auditory canals are clear. Oropharynx with no redness, swelling, or masses, exudates, or evidence of obstruction, uvula midline. Mucous membranes moist. Neck: Trachea midline, no thyromegaly or masses palpated, and no cervical lymphadenopathy. Supple, full range of motion without nuchal rigidity, or vertebral point tenderness. Chest/axilla: Normal chest wall appearance and motion. Nontender with no deformity. No lesions are appreciated. Cardiovascular: Regular rate and rhythm with a normal S1 and S2. No gallops, murmurs, or rubs. Normal PMI, no JVD. No pulse deficits. Respiratory: Lungs have equal breath sounds bilaterally, clear to auscultation and percussion. No rales, rhonchi or wheezes noted. No increased work of breathing, no retractions or nasal flaring. Abdomen/GI: Soft, with normal bowel sounds. No distension or tympany. No guarding or rebound. Positive for bilateral lower abdominal tenderness without rebound Back: No spinal tenderness. No costovertebral tenderness. Skin: Warm, dry with normal turgor. Normal color with no rashes, no lesions, and no evidence of cellulitis. MS/ Extremity: Pulses equal, no cyanosis. Neurovascular intact. Full, normal range of motion. Neuro: Awake and alert, GCS 15, oriented to person, place, time, and situation. Cranial nerves II-XII grossly intact. Motor strength 5/5 in all extremities. Sensory grossly intact. Psych: Awake, alert, with orientation to person, place and time. Behavior, mood, and affect are within normal limits Vital Signs: 19:52 BP 159 / 104; Pulse 92; Resp 16; Temp 98.5; Pulse Ox 96% on R/A; Weight 163.29 kg; iw Height 5 ft. 8 in. ; Pain 7/10; 20:12 BP 119 / 65; Pulse 88; Resp 18; Pulse Ox 100% on R/A; mb9 22:44 BP 126 / 61; Pulse 89; Resp 16; Temp 98.5; Pulse Ox 100% on R/A; iw 19:52 Body Mass Index 54.74 (163.29 kg, 172.72 cm) iw 19:52 Pain Scale: Adult iw Clyde Coma Score: 20:45 Eye Response: spontaneous(4). Motor Response: obeys commands(6). Verbal Response: sp4 oriented(5). Total: 15. MDM: 20:29 Patient medically screened. sp4 20:45 Differential diagnosis: Peritonitis, appendicitis, diverticulitis, gastroenteritis. sp4 Data reviewed: vital signs, nurses notes, lab test result(s), radiologic studies, CT scan. 22:41 ED course: CT revealed acute nonperforated appendicitis. . sp4 01/17 19:58 Order name: CBC with Diff; Complete Time: 21:35 iw 01/17 19:58 Order name: CMP; Complete Time: 21:35 iw 01/17 19:58 Order name: Lipase; Complete Time: 21:35 iw 01/17 20:30 Order name: Urinalysis W/Microscopic; Complete Time: 21:35 sp4 01/17 20:30 Order name: COVID-19 SARS RT PCR; Complete Time: 21:35 sp4 01/17 20:30 Order name: Influenza Screen (a \T\ B); Complete Time: 21:35 sp4 01/17 20:38 Order name: CRP; Complete Time: 04:31 sp4 01/17 20:37 Order name: CT Abd/Pelvis - IV Contrast Only; Complete Time: 21:35 sp4 01/17 19:58 Order name: IV Saline Lock; Complete Time: 20:08 iw 01/17 19:58 Order name: Labs collected and sent; Complete Time: 20:08 iw Administered Medications: 21:23 Drug: Ketorolac IVP 30 mg IVP once Route: IVP; Site: right antecubital; mb9 22:45 Follow up: Response: No adverse reaction; Pain is decreased iw 21:24 Drug: NS 0.9% IV 1000 ml IV at 1 bolus Per protocol; 1000 mL bolus Route: IV; Rate: 1 mb9 bolus; Site: right antecubital; 22:45 Follow up: IV Status: Infusion continued upon admission iw 21:24 Drug: Ondansetron IVP 8 mg IVP once; over 2 minutes Route: IVP; Site: right antecubital;mb9 22:45 Follow up: Response: No adverse reaction iw 21:52 Drug: Piperacillin-Tazobactam IVPB 3.375 grams IVPB once over 60 mins; (mix in NS 100 iw mL) Route: IVPB; Infused Over: 60 mins; Site: right antecubital; 22:45 Follow up: IV Status: Completed infusion iw Disposition Summary: 01/17/23 22:44 Hospitalization Ordered Notes: Hospitalization Status: Observation sp4 Provider: Manny Cochran sp4 Location: Telemetry/MedSurg (observation) sp4 Condition: Stable sp4 Problem: new sp4 Symptoms: have improved sp4 Bed/Room Type: Standard sp4 Room Assignment: 220(01/17/23 22:45) mw Diagnosis - Unspecified acute appendicitis sp4 Discharge Instructions: - Discharge Summary Sheet as6 Forms: - SBAR form as6 - Medication Reconciliation Form sp4 - Leadership Thank You Letter sp4 Signatures: Dispatcher [employer] Robyn Gr RN RN mw Williams, Irene, RN RN iw Breneman, Mary Beth, RN RN mb9 Potepalov, Sergey, MD MD sp4 Corrections: (The following items were deleted from the chart) 22:45 22:44 sp4 mw
[2023-01-17] MEDS ORDERED: SUCCINYLCHOLINE 20 MG/ML (10 ML) IV ONE (22:46)
[2023-01-17] MEDS ORDERED: propofoL 200 MG/20 ML VIAL IV ONE (22:52)
[2023-01-17] MEDS ORDERED: ROCURONIUM 50 MG/5 ML VIAL IV ONE (22:53)
[2023-01-17] MEDS ORDERED: LIDOCAINE 2% MPF 5 ML VIAL ONE (22:53)
[2023-01-17] MEDS ORDERED: FENTANYL CITR 250 MCG/5 ML ONE (22:54)
[2023-01-17] MEDS ORDERED: MIDAZOLAM HCL 2 MG/2 ML INJ ONE (22:54)
[2023-01-17] MEDS ORDERED: GLYCOPYRROLATE 0.2 MG/ML SYR ONE (22:54)
[2023-01-17] MEDS ORDERED: NEOSTIGMINE 1 MG/ML -10 ML VIAL ONE (22:54)
[2023-01-17] MEDS ORDERED: MORPHINE 4 MG/ML SYR IV PRN (23:24)
[2023-01-17] MEDS ORDERED: ALBUTEROL 2.5 MG/3 ML NEB SOL NEB PRN (23:24)
[2023-01-17] MEDS ORDERED: ONDANSETRON 4 MG/2 ML VIAL IV PRN (23:24)
--- NOTE | 2023-01-17 23:57 | P.BOP ---
Preoperative diagnosis: acute appendicitis, morbid obesity Postoperative diagnosis: same Primary procedure: Laparoscopic appendectomy Estimated blood loss: <10cc Specimen: chikis Findings: suppurative acute appendicitis Anesthesia: General Complications: None Transferred to: Recovery Room Condition: Good
[2023-01-18] MEDS ORDERED: ONDANSETRON 4 MG/2 ML VIAL IV PRN (00:01)
[2023-01-18] MEDS ORDERED: ONDANSETRON 4 MG/2 ML VIAL ONE (00:16)
[2023-01-18 00:50] VITALS: O2SAT 100
[2023-01-18] MEDS ORDERED: PIPER TAZO 3.375 GM in NA CHLORIDE 0.9% 100 ML IV SCH (01:00)
[2023-01-18] MEDS: D5 0.45 NS 1,000 ML IV SCH ×3 (01:25→15:03)
[2023-01-18] MEDS: HYDROCODONE/APAP 5/325 MG TAB PO PRN ×3 (01:57→18:13)
--- NOTE | 2023-01-18 02:55 | HP ---
Date of Admission: 01/17/2023 Diagnoses: Acute appendicitis, morbid obesity. History Of Present Illness: This is a case of a 32-year-old patient, who comes to us with abdominal pain and started in the periumbilical area, moved to the right lower quadrant, started since this mor jacky. Since he was not getting better, he decided to come to the ER. Imaging was done showing acute appendicitis and a surgical evaluation was requested. He denies any dysuria, hematuria, hematochezi a, or melena. Denies any recent travel out of the country. Denies any family member sick at home. He states some diarrhea and some nausea. Review of Systems: Ten points otherwise unremarkable. Medical History: Morbid obesity. Surgical History: None. Allergies: NONE. Medications: None. Social History: He does not smoke. He does not drink alcohol. Physical Examination: General: The patient is awake and alert. HEENT: Pupils are equal and reactive. Anicteric. Neck: Supple. Chest: Clear. Heart: S1, S2. Abdomen: Periumbilical and right lower quadrant tenderness with guarding and rebound. Genitalia: Deferred. Rectal: Deferred. Extremities: Good capillary refill. Neuro: Cranial nerves 2 through 12 grossly within normal limits. Laboratory Data: WBC count is 14, hemoglobin of 14, platelets of 309. Potassium is 3.9, creatinine is 0.98, total bilirubin of 0.8. Lipase 19. CAT scan of the abdomen and pelvis shows acute appendic itis. Assessment: This is a 32-year-old patient with acute appendicitis. The benefits, alternatives, and risks of laparoscopic possible open appendectomy fully explained to the patient, which include, but n ot limited to infection, bleeding, damage to adjacent structures, anesthesia complication, abscess, M I, and even . He also understands this may not relieve his symptoms. He might need more than o ne surgical intervention. He understood, signed a consent. The OR was emergently called. PLACIDO Voice ID: [id number]
--- NOTE | 2023-01-18 03:14 | OP ---
Date of Procedure: 01/17/2023 Surgeon: Manny Cochran MD Preoperative Diagnoses: Acute abdominal pain, acute appendicitis, and morbid obesity. Postoperative Diagnoses: Acute abdominal pain, acute appendicitis, and morbid obesity. Procedure: Laparoscopic appendectomy. Estimated Blood Loss: Less than 10 cc. Specimen: Appendix. Findings: Suppurative acute appendicitis. Anesthesia: General plus local. Complications: None. Indications: This is a case of a male, who comes to us with abdominal pain, found in the ER with per itonitis and abdominal pain. So, the patient was diagnosed with acute appendicitis. The benefits, a lternatives, and risks of laparoscopic possible open appendectomy fully explained, which include, but not limited to infection, bleeding, damage to adjacent structures, anesthesia complication, abscess, FL, and even . He also understands this may not relieve his symptoms. He might need more than one surgical intervention. He was also counseled on the importance of losing weight. Description Of Procedure: The patient was brought to the operating room and placed in supine positio n. Anesthesia was done without complication. Abdominal area was prepped and draped in sterile fashi on. Local anesthetic was carefully injected, then followed by sharp incision of the skin. Incision was carried down to fascia, which was opened under direct vision. Peritoneum was encountered, opened under direct vision. Vicryl #1 placed inside the fascia. Chrissy trocar was carefully introduced an d pneumoperitoneum was obtained. I placed 2 more trocars, 5 mm each one of them, in the suprapubic a nd left lower quadrant. Then, we directed our attention to the area of the appendix. We noticed an inflamed appendix. The mesoappendix was also very inflamed and some adhesions to the appendix, to th e peritoneum, to the mesentery, and to the retroperitoneum, so we have to use carefully after we iden tify the structures. We used the LigaSure to be able to go through this thick mesoappendix. We made sure the ureters were protected at all times. This is just partially retrocecal. Once we mobilized that area of the appendix, then we noticed the base of appendix to be spared from the inflammation, so we created a window in that area and transected that with an Endo ANAND non-vascular. Further hemos tasis was obtained with the help of hemoclips. Appendix removed from abdominal cavity using EndoCatc h through umbilical incision. The area was then inspected after full irrigation with several liters of saline. No bleeding. No bowel leak. At that moment, I proceeded to remove the trocars under dir ect vision, deflated pneumoperitoneum. Closed the fascia with #1 Vicryl. Irrigated subcutaneous tis golden and closed with 3-0 chromic and skin with samson. Sponge count and instrument counts were corre ct. The patient tolerated the procedure well. The patient is on his way to Recovery in stable condi tion. BRENNON/CHARLI Voice ID: [id number] Report ID: [id number]
[2023-01-18 04:58] VITALS: BMI 54.7
[2023-01-18] MEDS: PIPER TAZO 3.375 GM in NA CHLORIDE 0.9% 100 ML IV SCH ×2 (05:53→15:03)
[2023-01-18] MEDS ORDERED: INFLUENZA VACCINE (for 6+ mo) 0.5 ML DOSE IMVAC ONE (09:00)
[2023-01-18 17:23] VITALS: BP 118/79; TEMP 97.6
--- NOTE | 2023-01-18 17:34 | P.DS ---
Admission Date: 01/18/23 Discharge Date: 01/18/23 Disposition: ROUTINE DISCHARGE Discharge Condition: GOOD Brief History of Present Illness: see HPI Hospital Course: unremarkable Vital Signs/Physical Exam: Temp Pulse Resp BP Pulse Ox 97.6 F 83 18 118/79 94 01/18/23 16:00 01/18/23 16:00 01/18/23 16:00 01/18/23 16:00 01/18/23 16:00 General: Alert, Oriented x3, Cooperative HEENT: PERRLA Neck: Supple Respiratory: Normal air movement Cardiovascular: Normal pulses Gastrointestinal: Soft and benign Musculoskeletal: No swelling, No tenderness, No warmth Integumentary: No rashes, No cyanosis Neurological: Normal speech Laboratory Data at Discharge: WBC 14.00 thou/uL (4.3-10.9) H 01/17/23 20:05 Hgb 14.0 g/dL (13.6-17.9) 01/17/23 20:05 Hct 40.6 % (39.6-49.0) 01/17/23 20:05 Plt Count 309 thou/uL (152-406) 01/17/23 20:05 Sodium 136 mEq/L (136-145) 01/17/23 20:05 Potassium 3.9 mEq/L (3.5-5.1) 01/17/23 20:05 BUN 11 mg/dL (7-18) 01/17/23 20:05 Creatinine 0.98 mg/dL (0.70-1.30) 01/17/23 20:05 Glucose 117 mg/dL (74-106) H 01/17/23 20:05 Total Bilirubin 0.8 mg/dL (0.2-1.0) 01/17/23 20:05 AST 14 U/L (15-37) L 01/17/23 20:05 ALT 35 U/L (16-61) 01/17/23 20:05 Alkaline Phosphatase 84 U/L (45-117) 01/17/23 20:05 Lipase 19 U/L (13-75) 01/17/23 20:05 Physician Discharge Instructions: Keep area dry for 24h then may remove outer dressing and shower. Cover the samson with triple antibiotic ointment and bandaid Diet: AHA Activity: No lifting more than 10 lbs Followup: Manny Cochran MD [ACTIVE - CAN ADMIT] - 1 Week
== END 2023-01-18 18:35 | disposition home or self-care (01) | DRG 342 ==
LOC: ER 19:39 → 2ND 23:03 → OBSVTOIN 01-18 15:46
PROVIDERS: ADMIT Surgery; ATTEND Surgery
PROC: 0DTJ4ZZ Resection of Appendix, Percutaneous Endoscopic Approach (ICD-10-PCS; principal; 2023-01-17 23:00)
DX: K35.80 Unspecified acute appendicitis (principal); Z68.43 Body mass index [BMI] 50.0-59.9, adult; E66.01 Morbid (severe) obesity due to excess calories; Z20.822 Contact with and (suspected) exposure to COVID-19
CPT/HCPCS: 36415; 74177; 80053; 81001; 83690; 85025; 86140; 87635; 87804; 88304; 94010; 96365; 96375; 99285; G0378; J2001; J2250; J2405; J2543; J2704; J2710; J3010; J7030; J7799; Q9967

== ENCOUNTER 2023-02-18 11:44 | Emergency (ER) | payer SELFPAY ==
--- OUTSIDE RECORDS SUMMARY | 2023-02-18 11:48 | XMS REPORT | Continuity of Care Document ---
:1990 Author Organization [facility] t Address [address] [place] [address] Care Team Providers Name Role Phone Asked, [...] Expiration Date S isela [employer] BNFT 2 [id number] 2022 00:00:00 SYSTEM/* ADDISON CHARTER 2 [id number] 2020 00:00:00 PLANS Problems Condition Condition Condition [...] 00:00:00 Hospital Alcohol intake 2017-04-03 2017-04-03 Current [facility] 00:00:00 00:00:00 non-drinker of Hospital alcohol (finding) Sex Ass[birth year] At [birth year] [facility] 00:00:00 00:00:00 Hospital Smoking Status Start Date Stop Date Source Never smoked tobacco Sharon Seyb old - External Medications Ordered Filled Start Stop Current Ordering Indication Dosage Frequency Signature Comments Components Source Medication Medication Date Date Medication? 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 a 0.25 a week l MG/0.5ML subcutaneou s Solution Auto-inject or Multiple 2022- No Take by Kelse y Vitamins-Mi 4-05 04-05 mouth Seybol d nerals 15:54: 00:00 daily - (MULTI-DUSTIN 52 :00 Externa MIN GUMMIES l OR) Bupropion Yes [id number] 150mg Take 1 Sharon HCL XL 150 4-05 tablet Seybold MG OR TB24 00:00: (150 mg - 00 total) by Externa mouth l every morning Semaglutide Yes [id number] .25mg Inject Sharon -Weight 4-05 0.25 mg Seybold Management 00:00: into the - (Wegovy) 00 skin once 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 a 0.25 a week l MG/0.5ML subcutaneou s Solution Auto-inject or Ketoconazol Yes [id number] Apply to Sharon e 2 % apply 4-05 the Seybold externally 00:00: affected - Cream 00 area twice Externa daily for l 10 days Ketoconazol 2022-0 Yes [id number] Apply to Sharon e 2 % apply 4-05 the Seybold externally 00:00: affected - Cream 00 area twice Externa daily for l 10 days Ketoconazol Yes [id number] Apply to Sharon e 2 % apply 4-05 the Seybold externally 00:00: affected - Cream 00 area twice Externa daily for l 10 days Semaglutide 2022- No [id number] .25mg Inject Sharon -Weight 4-05 05-16 0.25 mg Seybold Management 00:00: 00:00 into the - (Wegovy) 00 :00 skin once 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 a 0.25 a week l MG/0.5ML subcutaneou s Solution Auto-inject or Ketoconazol 2022- No [id number] Apply to Sharon e 2 % apply 07-17 04-05 the Seybold externally 00:00: 00:00 affected - Cream 00 :00 area twice Externa daily for l 10 days Ketoconazol 2022- No [id number] Apply to Sharon e 2 % apply 07-17 04-05 the Seybold externally 00:00: 00:00 affected - Cream 00 :00 area twice Externa daily for l 10 days Bupropion 2022- No [id number] TAKE 1 Sharon HCL XL 150 6-23 04-05 TABLET BY Sey bold MG OR TB24 00:00: 00:00 MOUTH - 00 :00 EVERY DAY Externa IN THE l MORNING Multiple Yes Take by Sharon Vitamins-Mi 3-22 mouth Seybold nerals 16:07: daily (MULTI-DUSTIN 27 MIN GUMMIES OR) Bupropion Yes [id number] TAKE 1 K elsey HCL XL 150 2-03 TABLET BY Seyb old MG OR TB24 00:00: MOUTH 00 EVERY DAY IN THE MORNING Multiple 2020-04 Yes Take by Sharon Vitamins-Mi 0-29 mouth Seybold nerals 16:21: daily (MULTI-DUSTIN 01 MIN GUMMIES OR) Bupropion 2020-04 Yes [id number] 150mg Take 1 Sharon HCL XL 150 0-13 tablet Seybold MG OR TB24 00:00: (150 mg 00 total) by mouth every morning Bupropion 2020-04 Yes [id number] 150mg Take 1 Sharon HCL XL 150 0-13 tablet Seybold MG OR TB24 00:00: (150 mg 00 total) by mouth every morning Tobramycin- 2020-04- No [id number] 1[drp] Place 1 Sharon Dexamethaso 0-04 10-12 [id number] drop into Seybold ne 00:00: 04:59 the right (TobraDex) 00 :00 eye 4 0.3-0.1 % times ophthalmic daily for Suspension 7 days Amoxicillin Yes [id number] 1{tbl} Take 1 Sharon -Pot 9-27 tablet by Seybold Clavulanate 00:00: mouth 3 (Augmentin) 00 times 500-125 MG daily oral Tablet Amoxicillin Yes [id number] 1{tbl} Take 1 Sharon -Pot 9-27 tablet by Seybold Clavulanate 00:00: mouth 3 (Augmentin) 00 times 500-125 MG daily oral Tablet Amoxicillin Yes [id number] 1{tbl} Take 1 Sharon -Pot 9-27 tablet by Seybold Clavulanate 00:00: mouth 3 (Augmentin) 00 times 500-125 MG daily oral Tablet Amoxicillin 2020- No [id number] 1{tbl} Take 1 Sharon -Pot 9-27 10-29 [...] Planned Date Details Comments Source Future Scheduled 2023-02-07 INFLUENZA VACCINE Method [facility] Test 14:50:46 (#1) [code = INFLUENZA VACCINE (#1)] Future Scheduled 2023-02-07 [facility]:50[facility] (#1) [code = COVID-19 VACCINE (#1)] Future Scheduled 2023-01-17 INFLUENZA VACCINE [facility] Test 19:57:09 (#1) [code = INFLUENZA VACCINE (#1)] Future Scheduled 2023-01-17 [facility] 19:57:09 (#1) [code = COVID-19 VACCINE (#1)] Future Scheduled 2022-03-30 [facility] Test 08:53:32 (#1) [code = COVID-19 VACCINE (#1)] Future Scheduled 2022-03-30 INFLUENZA VACCINE [facility] Test 08:53:32 [code = INFLUENZA VACCINE] Encounters Start End Encounter Admission Attending Care Care Encounter Source Date/Time Date/Time Type Type Clinicians Facility Department ID 2023-01-08 2023-01-08 Outpatient SHARON HUNT [id number] Sharon 00:00:00 00:00:00 ROD Seybol d 2022-10-18 2022-10-18 Outpatient SHARON HUSSEIN [id number] Sharon 00:00:00 00:00:00 TJ Seybol d 2022-10-17 2022-10-17 Outpatient SHARON HUSSEIN [id number] Sharon 00:00:00 00:00:00 TJ Seybol d 2022-10-162022-10-16 [id number] Sharon 00:00:00 00:00:00 MD LUIS Seybol d 2022-10-08 2022-10-08 Outpatient SHARON HUSSEIN [id number] Sharon 11:00:00 11:00:00 TJ Seybol d 2022-10-07 2022-10-07 Outpatient SHARON HUSSEIN [id number] Sharon 00:00:00 00:00:00 TJ Seybol d 2022-09-13 2022-09-13 Outpatient ALETHEA HOROWITZ [id number] Sharon 16:00:00 16:00:00 Seybol d 2022-08-27 2022-08-27 Outpatient LAB90 SHARON ULRICH [id number] Sharon 15:50:00 15:50:00 Seybol d 2022-08-27 2022-08-27 Outpatient SHARON HUNT [id number] Sharon 15:15:00 15:15:00 ROD Seybol d 2022-08-09 2022-08-09 Outpatient ALETHEA HOROWITZ [id number] Sharon 16:00:00 16:00:00 Seybol d 2022-07-30 2022-07-30 Outpatient SHARON HUNT [id number] Sharon 00:00:00 00:00:00 ROD Seybol d 2022-07-30 2022-07-30 Outpatient SHARON NORIEGA [id number] Sharon 00:00:00 00:00:00 AZEEM Seybol d 2022-07-29 2022-07-29 Outpatient LAB90 SHARON ULRICH [id number] Sharon 08:30:00 08:30:00 Seybol d 2022-07-26 2022-07-26 Outpatient ALETHEA HOROWITZ [id number] Sharon 16:00:00 16:00:00 Seybol d 2022-07-26 2022-07-26 Outpatient SHARON HUNT [id number] Sharon 00:00:00 00:00:00 ROD Seybol d 2022-07-25 2022-07-25 Outpatient ALETHEA HOROWITZ SHARON ULRICH [id number] Sharon 00:00:00 00:00:00 Seybol d 2022-07-23 2022-07-23 Outpatient SHARON NORIEGA [id number] Sharon 00:00:00 00:00:00 AZEEM Seybol d 2022-07-19 2022-07-19 Outpatient ALETHEA HOROWITZ SHARON ULRICH [id number] Sharon 16:30:00 16:30:00 Seybol d 2022-07-19 2022-07-19 Outpatient PARTHAMARLI SHARON ULRICH [id number] Sharon 15:30:00 15:30:00 JUSTINA Seybol d 2022-07-19 2022-07-19 Outpatient TYMarco SHARON [facility]LR[facility] [id number] Sharon 14:45:00 14:45:00 JUSTINA Seybol d 2022-07-17 2022-07-17 Outpatient PENNYKathiaSHARON [id number] Sharon 16:00:00 16:00:00 ROD Seybol d 2022-01-03 2022-01-03 Outpatient TOBIN PAYTON SHARON [facility]LRICH [id number] Sharon 16:15:00 16:15:00 Seybol d 2021-08-27 2021-08-27 Outpatient YEHUDAKALYANSHARON [id number] Sharon 09:00:00 09:00:00 SAWYER Seybol d 2021-07-07 2021-07-07 Outpatient SHARON NORIEGA [id number] Sharon 00:00:00 00:00:00 AZEEM Seybol d 2021-07-03 2021-07-03 Office Tboin Payton [id number] Sharon 16:15:00 16:30:00 Visit MEDICAL & [id number] Seybold DIAGNOSTI [id number] C CENTER [id number] 2021-05-17 2021-05-17 Outpatient SHARON NORIEGA [id number] Sharon 00:00:00 00:00:00 AZEEM Seybol d 2021-03-06 2021-03-06 Outpatient LEANN SHARON [facility]LRICH [id number] Sharon 16:15:00 16:15:00 AZEME Huynhol d 2021-02-09 2021-02-09 Office SANTI Rosado [id number] Sharon 16:16:53 16:31:53 Visit [facility] & [id number] Seybold DIAGNOSTI [id number] C CENTER [id number] 2021-01-24 2021-01-24 Telemedici SANTI Noriega [id number] Sharon 10:47:50 10:55:39 ne Azeem Villarreal MEDICAL & [id number] Seybold DIAGNOSTI [id number] C CENTER [id number] 2021-01-15 2021-01-15 Office SANTI Urbina [id number] Sharon 08:25:27 08:45:27 Visit [facility] & [id number] Seybold DIAGNOSTI [id number] C CENTER [id number] 2021-01-08 2021-01-08 Office SANTI Urbina [id number] Sharon 08:26:15 08:46:15 Visit [facility] & [id number] Seybold DIAGNOSTI [id number] C CENTER [id number] 2020-12-19 2020-12-19 Office Brian Woodruff K SANTI BEND [id number] Sharon 16:06:12 16:21:12 Visit MEDICAL & [id number] Seybold DIAGNOSTI [id number] C CENTER [id number] Results This patient has no known results.
[2023-02-18 12:23] LABS: Absolute Lymphocytes (CBC) 1.8 K/uL (0.7-4.9); Hematocrit 40.8 % (39.6-49.0); Lymphocytes % 23.8 % (15.3-44.8); MPV 8.4 fL (7.6-11.3); Platelets 272 thou/uL (152-406); RBC Red Blood Cell Count 4.69 M/uL (4.33-5.43)
[2023-02-18 12:45] LABS: Albumin 3.5 g/dL (3.4-5.0); Bilirubin Direct 0.2 mg/dL (0-0.2); Bilirubin Indirect, Calculated 0.6 mg/dL (0.2-0.8); Bilirubin Total 0.8 mg/dL (0.2-1.0); Potassium 3.9 mEq/L (3.5-5.1); Protein, Total 7.7 g/dL (6.4-8.2); Troponin High Sensitivity 4.9 pg/mL (<58.9)
[2023-02-18 12:56] LABS: SARS-COV-2 RT PCR NEGATIVE (NEGATIVE)
--- NOTE | 2023-02-18 13:03 | ER ---
Nurse's Notes [facility] Name: Emiliano Corona Age: 32 yrs Sex: Male : 1990 Arrival Date: 02/18/2023 Time: 11:44 Bed 15 Private MD: Diagnosis: Nonspecific chest pain, upper respiratory congestion Presentation: 02/18 11:54 Chief complaint: Patient states: Chest pain, dizziness and shortness of breath, onset nj1 about 2 hours ago. Dizziness has gotten better, chest pain is about the same since it started. No shortness of breath at this time. 11:54 Coronavirus screen: Vaccine status: Patient reports being unvaccinated. Ebola Screen: nj1 Patient denies travel to an Ebola-affected area in the 21 days before illness onset. Initial Sepsis Screen: Does the patient meet any 2 criteria? No. Patient's initial sepsis screen is negative. Does the patient have a suspected source of infection? No. Patient's initial sepsis screen is negative. Risk Assessment: Do you want to hurt yourself or someone else? Patient reports no desire to harm self or others. Onset of symptoms was February 18, 2023 at 10:00. 11:54 Method Of Arrival: Ambulatory nj1 11:54 Acuity: SE 2 nj1 Historical: - Allergies: 12:01 No Known Allergies; nj1 - PMHx: 12:01 None; nj1 - PSHx: 12:01 Appendectomy; Tonsillectomy; nj1 - Immunization history:: Client reports having NOT received the Covid vaccine. - Social history:: Smoking status: Patient denies any tobacco usage or history of. Screenin:03 [facility] ED Fall Risk Assessment (Adult) Score/Fall Risk Level 0 - 2 = Low Risk nj1 Oriented to surroundings, Maintained a safe environment, Hourly rounding (assess needs \T\ fall precautionary measures) done. Abuse screen: Denies threats or abuse. Denies injuries from another. Nutritional screening: No deficits noted. Tuberculosis screening: No symptoms or risk factors identified. Assessment: 12:02 General: Appears in no apparent distress. uncomfortable, Behavior is calm, cooperative, nj1 appropriate for age. Pain: Complains of pain in chest Pain does not radiate. Pain currently is 3 out of 10 on a pain scale. Pain began suddenly, 2 hours ago. Neuro: Level of Consciousness is awake, alert, obeys commands, Oriented to person, place, time, situation. Cardiovascular: Patient's skin is warm and dry. Chest pain. Respiratory: Airway is patent Respiratory effort is even, unlabored. 12:55 Reassessment: Patient appears in no apparent distress at this time. Patient and/or nj1 family updated on plan of care and expected duration. Pain level reassessed. Patient is alert, oriented x 3, equal unlabored respirations, skin warm/dry/pink. Patient states feeling better. Patient states symptoms have improved. 13:45 Reassessment: Patient appears in no apparent distress at this time. Patient and/or nj1 family updated on plan of care and expected duration. Pain level reassessed. Patient is alert, oriented x 3, equal unlabored respirations, skin warm/dry/pink. Patient denies pain at this time. Patient states feeling better. Patient states symptoms have improved. Vital Signs: 11:54 BP 135 / 70; Pulse 89; Resp 18; Temp 98.7; Pulse Ox 96% on R/A; Weight 163.29 kg; nj1 Height 5 ft. 8 in. ; Pain 3/10; 12:52 BP 123 / 75; Pulse 84; Resp 23; Pulse Ox 96% on R/A; Pain 1/10; nj1 13:38 BP 111 / 68; Pulse 86; Resp 22; Pulse Ox 93% on R/A; nj1 11:54 Body Mass Index 54.74 (163.29 kg, 172.72 cm) nj1 11:54 Pain Scale: Adult [facility] 12:52 Pain Scale: Adult [facility] ED Course: 11:43 Inserted saline lock: 20 gauge in right antecubital area, using aseptic technique. ca1 Blood collected. 11:47 Patient arrived in ED. im 11:50 Jin Choi MD is Attending Physician. sp3 11:53 Claire Martinez, MICAELA is Primary Nurse. nj1 12:01 Triage completed. nj1 12:02 Arm band placed on. nj1 12:03 Patient has correct armband on for positive identification. Bed in low position. Call ca1 light in reach. Provided Education on: call light, fall precautions. Client placed on continuous cardiac and pulse oximetry monitoring. NIBP monitoring applied. 12:03 Patient maintains SpO2 saturation greater than 95% on room air. nj1 13:03 XRAY Chest (1 view) In Process Unspecified. EDMS 13:45 No provider procedures requiring assistance completed. IV discontinued, intact, nj1 bleeding controlled. Administered Medications: No medications were administered Medication: 13:46 VIS not applicable for this client. nj1 Outcome: 13:02 Discharge ordered by . sp3 13:45 Discharged to home ambulatory, nj1 13:45 Condition: stable 13:45 Discharge instructions given to patient, Instructed on discharge instructions, follow up and referral plans. Demonstrated understanding of instructions, follow-up care, 13:46 Patient left the ED. nj1 Signatures: Dispatcher [employer] EDMS Jin Choi MD MD sp3 Claire Martinez RN RN nj1 Sadaf Ruvalcaba Corrections: (The following items were deleted from the chart) 13:45 13:45 Reassessment: Patient appears in no apparent distress at this time. Patient nj1 and/or family updated on plan of care and expected duration. Pain level reassessed. Patient is alert, oriented x 3, equal unlabored respirations, skin warm/dry/pink. Patient denies pain at this time. nj1
--- NOTE | 2023-02-18 13:03 | EDPHYS ---
Physician Documentation [facility] Name: Emiliano Corona Age: 32 yrs Sex: Male : 1990 Arrival Date: 02/18/2023 Time: 11:44 Bed 15 Private MD: ED Physician Jin Choi HPI: 02/18 12:27 This 32 yrs old Male presents to ER via Ambulatory with complaints of Chest Tightness, sp3 Dizziness. 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 Patient also states that it is occasionally difficult to "take a breath". He denies prior cardiac history, headache, neck pain, trauma, back pain, abdominal pain, nausea, vomiting, diarrhea, syncope, near syncope, or any other signs or symptoms at this time. He also denies known sick contacts or travel history.. Historical: - Allergies: 12:01 No Known Allergies; nj1 - PMHx: 12:01 None; nj1 - PSHx: 12:01 Appendectomy; Tonsillectomy; nj1 - Immunization history:: Client reports having NOT received the Covid vaccine. - Social history:: Smoking status: Patient denies any tobacco usage or history of. ROS: 12:28 Constitutional: Negative for fever, chills, and weight loss, Eyes: Negative for injury, sp3 pain, redness, and discharge, ENT: Negative for injury, pain, and discharge, Neck: Negative for injury, pain, and swelling, Abdomen/GI: Negative for abdominal pain, nausea, vomiting, diarrhea, and constipation, Back: Negative for injury and pain, MS/Extremity: Negative for injury and deformity, Skin: Negative for injury, rash, and discoloration, Neuro: Negative for headache, weakness, numbness, tingling, and seizure, Psych: Negative for depression, anxiety, suicide ideation, homicidal ideation, and hallucinations, Allergy/Immunology: Negative for hives, rash, and allergies, Endocrine: Negative for neck swelling, polydipsia, polyuria, polyphagia, and marked weight changes, Hematologic/Lymphatic: Negative for swollen nodes, abnormal bleeding, and unusual bruising, 12:28 All other systems are negative, Exam: 12:35 Constitutional: This is a well developed, well nourished patient who is awake, alert, sp3 and in no acute distress. Head/Face: Normocephalic, atraumatic. Eyes: Pupils equal round and reactive to light, extra-ocular motions intact. Lids and lashes normal. Conjunctiva and sclera are non-icteric and not injected. Cornea within normal limits. Periorbital areas with no swelling, redness, or edema. ENT: Nares patent. No nasal discharge, no septal abnormalities noted. External auditory canals are clear. Oropharynx with no redness, swelling, or masses, exudates, or evidence of obstruction, uvula midline. Mucous membranes moist. Neck: Trachea midline, no thyromegaly or masses palpated, and no cervical lymphadenopathy. Supple, full range of motion without nuchal rigidity, or vertebral point tenderness. No Meningismus. Chest/axilla: Normal chest wall appearance and motion. Nontender with no deformity. No lesions are appreciated. Cardiovascular: Regular rate and rhythm with a normal S1 and S2. No gallops, murmurs, or rubs. Normal PMI, no JVD. No pulse deficits. Respiratory: Lungs have equal breath sounds bilaterally, clear to auscultation and percussion. No rales, rhonchi or wheezes noted. No increased work of breathing, no retractions or nasal flaring. Abdomen/GI: Soft, non-tender, with normal bowel sounds. No distension or tympany. No guarding or rebound. No evidence of tenderness throughout. Back: No spinal tenderness. No costovertebral tenderness. Full range of motion. Skin: Warm, dry with normal turgor. Normal color with no rashes, no lesions, and no evidence of cellulitis. MS/ Extremity: Pulses equal, no cyanosis. Neurovascular intact. Full, normal range of motion. Neuro: Awake and alert, GCS 15, oriented to person, place, time, and situation. Cranial nerves II-XII grossly intact. Motor strength 5/5 in all extremities. Sensory grossly intact. Cerebellar exam normal. Normal gait. Psych: Awake, alert, with orientation to person, place and time. Behavior, mood, and affect are within normal limits. 12:35 ECG was reviewed by the Attending Physician. EKG demonstrates normal sinus rhythm at 70 bpm with normal intervals, normal QRS, normal axis, normal ST/T-segment's without evidence of acute ischemia. Vital Signs: 11:54 BP 135 / 70; Pulse 89; Resp 18; Temp 98.7; Pulse Ox 96% on R/A; Weight 163.29 kg; nj1 Height 5 ft. 8 in. ; Pain 3/10; 12:52 BP 123 / 75; Pulse 84; Resp 23; Pulse Ox 96% on R/A; Pain 1/10; nj1 13:38 BP 111 / 68; Pulse 86; Resp 22; Pulse Ox 93% on R/A; nj1 11:54 Body Mass Index 54.74 (163.29 kg, 172.72 cm) nj1 11:54 Pain Scale: Adult nj1 12:52 Pain Scale: Adult nj1 MDM: 12:02 Patient medically screened. sp3 12:35 Data reviewed: vital signs, nurses notes, lab test result(s), EKG, radiologic studies. sp3 ED course: 32-year-old male with chest pain, episodic shortness of breath and upper respiratory congestion. Differential diagnosis includes viral upper respiratory infection, COVID-19, influenza too much less likelihood acute coronary syndrome, PE, pneumonia. Clinically have ruled out aortic pathology including dissection and aneurysm. Will obtain laboratory values including D-dimer, troponin and chest x-ray which is pending. EKG demonstrates no significant abnormalities. Disposition likely home with PCP follow-up.. 13:01 ED course: Chest x-ray and all laboratory values reviewed. D-dimer and troponin are sp3 both negative. Patient is resting comfortably no acute distress. We will safely discharge patient home at this time with PCP follow-up.. 02/18 12:02 Order name: Basic Metabolic Panel; Complete Time: 13:00 sp3 02/18 12:02 Order name: CBC with Diff; Complete Time: 13:00 sp3 02/18 12:02 Order name: D-Dimer; Complete Time: 13:00 sp3 02/18 12:02 Order name: LFT's; Complete Time: 13:00 sp3 02/18 12:02 Order name: Troponin HS; Complete Time: 13:00 sp3 02/18 12:02 Order name: COVID-19/FLU A+B; Complete Time: 13:00 sp3 02/18 12:02 Order name: XRAY Chest (1 view); Complete Time: 13:19 sp3 02/18 12:02 Order name: EKG; Complete Time: 12:02 sp3 02/18 12:02 Order name: Cardiac monitoring; Complete Time: 12:16 sp3 02/18 12:02 Order name: EKG - Nurse/Tech; Complete Time: 12:16 sp3 02/18 12:02 Order name: IV Saline Lock; Complete Time: 12:16 sp3 02/18 12:02 Order name: Labs collected and sent; Complete Time: 12:16 sp3 02/18 12:02 Order name: O2 Per Protocol; Complete Time: 12:16 sp3 02/18 12:02 Order name: O2 Sat Monitoring; Complete Time: 12:17 sp3 Administered Medications: No medications were administered Disposition Summary: 02/18/23 13:02 Discharge Ordered Notes: Location: Home sp3 Condition: Stable sp3 Diagnosis - Nonspecific chest pain, upper respiratory congestion sp3 Followup: sp3 - With: Private Physician - When: Upon discharge from the Emergency Department - Reason: Continuance of care Discharge Instructions: - Discharge Summary Sheet sp3 - Nonspecific Chest Pain, Adult sp3 Forms: - Medication Reconciliation Form sp3 - Thank You Letter sp3 - Antibiotic Education sp3 - Prescription Opioid Use sp3 - Patient Portal Instructions sp3 - Leadership Thank You Letter sp3 Signatures: Dispatcher [employer] EDJin Enamorado MD MD sp3 Claire Martinez RN RN nj1
--- NOTE | 2023-02-18 13:14 | RAD REPORT ---
EXAM DESCRIPTION: RAD - Chest Single View - 02/18/2023 1:02 pm CLINICAL HISTORY: CHEST PAIN Chest pain. COMPARISON: Chest Pa And Lat (2 Views) dated 06/20/2022 FINDINGS: Portable technique limits examination quality. The lungs are grossly clear. The heart is mildly prominent. No displaced fractures. IMPRESSION: No acute intrathoracic process suspected.
[2023-02-18 13:57] VITALS: TEMP 98.7
[2023-02-18 14:01] VITALS: BP 111/68; O2SAT 93
--- NOTE | 2023-02-22 14:26 | EKG ---
Test Date: 2023-02-18 Test Time: 12:58:44 Plush Weaver: LACI MEASUREMENT RESULTS: Intervals: Rate: 78 AK: 132 QRSD: 90 QT: 380 QTc: 433 [place]: P: 39 AK: 132 QRS: 56 T: 17 INTERPRETIVE STATEMENTS: Normal sinus rhythm Normal ECG No previous ECG available for comparison Electronically Signed On 02-22-23 14:14:47 [employer] by Joe Gonzalez
== END 2023-02-18 13:46 | disposition home or self-care (01) ==
LOC: ER 11:44
DX: R07.89 Other chest pain (principal); R09.89 Other specified symptoms and signs involving the circulatory and respiratory systems; Z11.52 Encounter for screening for COVID-19
CPT/HCPCS: 0240U; 36415; 71045; 80048; 80076; 84484; 85025; 85379; 93005; 99284

== ENCOUNTER → 2023-04-02 | Emergency (ER) | payer SELFPAY ==
--- NOTE | 2023-04-02 16:54 | ER ---
Nurse's Notes [facility] Name: Emiliano Corona Age: 32 yrs Sex: Male : 1990 Arrival Date: 04/02/2023 Time: 16:30 Bed IW1 Private MD: Diagnosis: Cellulitis of face;Chronic sinusitis, unspecified Presentation: 04/02 16:42 Chief complaint: Patient states: NASAL PAIN, NASAL CONGESTION, SINUS PAIN AND bp CONGESTION x1 WK. Coronavirus screen: At this time, the client does not indicate any symptoms associated with coronavirus-19. Ebola Screen: No symptoms or risks identified at this time. Initial Sepsis Screen: Does the patient meet any 2 criteria? No. Patient's initial sepsis screen is negative. Does the patient have a suspected source of infection? No. Patient's initial sepsis screen is negative. Risk Assessment: Do you want to hurt yourself or someone else? Patient reports no desire to harm self or others. Onset of symptoms is unknown. 16:42 Method Of Arrival: Ambulatory bp 16:42 Acuity: SE 3 bp Triage Assessment: 16:43 General: Appears in no apparent distress. uncomfortable, obese, Behavior is bp cooperative, appropriate for age, anxious. Pain: Complains of pain in nose. Historical: - Allergies: 16:43 No Known Allergies; bp - PSHx: 16:43 Appendectomy; Tonsillectomy; bp - Immunization history:: Adult Immunizations up to date. - Social history:: Smoking status: Patient denies any tobacco usage or history of. Screenin:44 [facility] ED Fall Risk Assessment (Adult) History of falling in the last 3 months, bp including since admission No falls in past 3 months (0 pts). Abuse screen: Denies threats or abuse. Denies injuries from another. Nutritional screening: No deficits noted. Tuberculosis screening: No symptoms or risk factors identified. Assessment: 17:30 Reassessment: No changes from previously documented assessment. Patient and/or family ll1 updated on plan of care and expected duration. Pain level reassessed. Patient is alert, oriented x 3, equal unlabored respirations, skin warm/dry/pink. Vital Signs: 16:42 BP 165 / 96; Pulse 96; Resp 16; Temp 98.5; Pulse Ox 99% ; Weight 156.49 kg; Height 5 bp ft. 8 in. ; 16:42 Body Mass Index 52.46 (156.49 kg, 172.72 cm) bp ED Course: 16:34 Patient arrived in ED. rg4 16:35 Dionte Weiner MD is Attending Physician. ec2 16:43 Triage completed. bp 16:43 Arm band placed on. bp 16:44 Patient has correct armband on for positive identification. bp 17:30 Provided Education on: n/a. ll1 17:30 No provider procedures requiring assistance completed. Patient did not have IV access ll1 during this emergency room visit. Administered Medications: No medications were administered Medication: 17:30 VIS not applicable for this client. ll1 Outcome: 16:54 Discharge ordered by . ec2 17:30 Discharged to home ambulatory, ll1 17:30 Condition: stable 17:30 Discharge instructions given to patient, Instructed on discharge instructions, follow up and referral plans. medication usage, Demonstrated understanding of instructions, follow-up care, medications, Prescriptions given X 1, 17:31 Patient left the ED. ll1 Signatures: Jaycee Catalan rg4 Max Diaz, RN RN bp Adrian Mcdonadl RN RN ll1 Dionte Weiner MD MD ec2
--- NOTE | 2023-04-02 16:54 | EDPHYS ---
Physician Documentation [facility] Name: Emiliano Corona Age: 32 yrs Sex: Male : 1990 Arrival Date: 04/02/2023 Time: 16:30 Bed IW1 Private MD: ED Physician Dionte Weiner HPI: 04/02 16:55 This 32 yrs old Male presents to ER via Ambulatory with complaints of Nose ec2 Problem. 16:55 Patient arrives today due to concern for induration to the nose. Patient reports he has ec2 been having bilateral nares drainage ongoing for 1 month, states that he occasionally has some bloody nasal discharge as well. Patient reports no fevers or chills, no nausea or vomiting, reports no eye disturbances, reports no herpetic lesions. Patient reports otherwise tolerating p.o. without issue. States he was recently started on ciprofloxacin however went to be reevaluated as the induration and redness of the nose is new.. Historical: - Allergies: 16:43 No Known Allergies; bp - PSHx: 16:43 Appendectomy; Tonsillectomy; bp - Immunization history:: Adult Immunizations up to date. - Social history:: Smoking status: Patient denies any tobacco usage or history of. ROS: 16:55 Constitutional: as per hpi ec2 Exam: 16:55 Constitutional: GEN: NAD Head: atraumatic Eyes: EOMI, no erythema, no drainage ec2 noted Ears: External ears are normal. CV: regular rate LUNGS: no respiratory distress ABD: non-distended SKIN: Bilateral naris to the tip of the nose shows erythema with associated induration, slight warmth appreciated, no vesicular lesions noted in the V1, V2, V3 distributions. MSK: no evidence of trauma NEURO: moves all extremities equally Vital Signs: 16:42 BP 165 / 96; Pulse 96; Resp 16; Temp 98.5; Pulse Ox 99% ; Weight 156.49 kg; Height 5 bp ft. 8 in. ; 16:42 Body Mass Index 52.46 (156.49 kg, 172.72 cm) bp MDM: 16:54 Patient medically screened. ec2 16:55 Data reviewed: vital signs. ED course: Patient arrives today for evaluation of skin ec2 changes of the nose. Examination remarkable for skin findings as noted above. I suspect cellulitis causing the patient's symptoms, possible chronic sinusitis and skin irritation from frequent nose blowing, regardless we will start the patient on clindamycin to cover both bacterial sinusitis as symptoms been ongoing for greater than 10 days as well as for cellulitis coverage. No evidence of herpetic lesions, low suspicion for herpes ophthalmicus or. Low suspicion for shingles. I will discharge home, return precautions given.. Administered Medications: No medications were administered Disposition Summary: 04/02/23 16:54 Discharge Ordered Notes: Location: Home ec2 Problem: new ec2 Symptoms: are unchanged ec2 Condition: Stable ec2 Diagnosis - Cellulitis of face ec2 - Chronic sinusitis, unspecified ec2 Followup: ec2 - With: Private Physician - When: - Reason: Recheck today's complaints Discharge Instructions: - Discharge Summary Sheet ec2 - Cellulitis, Adult ec2 - Sinusitis, Adult, [id number] ec2 Forms: - Medication Reconciliation Form ec2 - Thank You Letter ec2 - Antibiotic Education ec2 - Prescription Opioid Use ec2 - Patient Portal Instructions ec2 - Leadership Thank You Letter ec2 Prescriptions: - Clindamycin HCl 150 mg Oral capsule - take 3 capsule ORAL route every 8 hours for 7 days; 63 capsule; Refills: 0, ec2 Product Selection Permitted Signatures: Max Diaz RN RN bp Corral, Edwin, MD MD ec2
[2023-04-02 19:03] VITALS: BP 165/96; TEMP 98.5; O2SAT 99
== END ==
LOC: ER 16:30
DX: J32.9 Chronic sinusitis, unspecified (principal); L03.211 Cellulitis of face
CPT/HCPCS: 99283

== ENCOUNTER → 2023-04-09 | Emergency (ER) | payer SELFPAY ==
[2023-04-09 09:34] LABS: Absolute Lymphocytes (CBC) 2.1 K/uL (0.7-4.9); Hematocrit 44.3 % (39.6-49.0); Lymphocytes % 25.8 % (15.3-44.8); MCV 87.3 fL (80-100); MPV 8.2 fL (7.6-11.3); Platelets 304 thou/uL (152-406); RBC Red Blood Cell Count 5.07 M/uL (4.33-5.43)
--- NOTE | 2023-04-09 09:46 | RAD REPORT ---
EXAM DESCRIPTION: RADChest Single View04/09/2023 9:30 am CLINICAL HISTORY: CHEST PAIN COMPARISON: Chest Single View dated 02/18/2023; Chest Pa And Lat (2 Views) dated 06/20/2022 TECHNIQUE: Portable AP view of the chest. FINDINGS: The lungs are clear. No pneumothorax or effusion. The cardiomediastinal contours are unre markable. IMPRESSION: No acute cardiopulmonary process.
[2023-04-09 09:51] LABS: Potassium 3.5 mEq/L (3.5-5.1); Troponin High Sensitivity 3.9 pg/mL (<58.9)
--- NOTE | 2023-04-09 10:07 | ER ---
Nurse's Notes [facility] Name: Emiliano Corona Age: 32 yrs Sex: Male : 1990 Arrival Date: 04/09/2023 Time: 08:46 Bed 15 Private MD: Diagnosis: Acute gastritis Presentation: 04/09 08:51 Chief complaint: Patient states: was here a week ago for cellulitis of my nose, was iw prescribed clindamycin , has been on it X 1 week, yesterday I felt like food was blocked in my chest, he has acid reflux from the medicine , also having left sided jaw pain. Coronavirus screen: At this time, the client does not indicate any symptoms associated with coronavirus-19. Ebola Screen: Patient negative for fever greater than or equal to 101.5 degrees Fahrenheit, and additional compatible Ebola Virus Disease symptoms Patient denies exposure to infectious person. Patient denies travel to an Ebola-affected area in the 21 days before illness onset. No symptoms or risks identified at this time. Risk Assessment: Do you want to hurt yourself or someone else? Patient reports no desire to harm self or others. 08:51 Method Of Arrival: Ambulatory iw 08:51 Acuity: SE 3 iw 09:24 Initial Sepsis Screen: Does the patient meet any 2 criteria? No. Patient's initial kd3 sepsis screen is negative. Does the patient have a suspected source of infection? No. Patient's initial sepsis screen is negative. Onset of symptoms was April 09, 2023. Triage Assessment: 09:23 General: Appears in no apparent distress. Behavior is calm, cooperative. Pain: kd3 Complains of pain in chest. Neuro: Level of Consciousness is awake, alert, obeys commands, Oriented to person, place, time, situation. Historical: - Allergies: 08:53 No Known Allergies; iw - PMHx: 08:53 None; iw - PSHx: 08:53 Appendectomy; Tonsillectomy; iw - Immunization history:: Adult Immunizations Client reports receiving the 2nd dose of the Covid vaccine. - Social history:: Smoking status: Patient denies any tobacco usage or history of. Screenin:23 [facility] ED Fall Risk Assessment (Adult) History of falling in the last 3 months, kd3 including since admission No falls in past 3 months (0 pts) Confusion or Disorientation No (0 pts) Intoxicated or Sedated No (0 pts) Impaired Gait No (0 pts) Mobility Assist Device Used No (0 pt) Altered Elimination No (0 pt) Score/Fall Risk Level 0 - 2 = Low Risk Oriented to surroundings. Abuse screen: Denies threats or abuse. Denies injuries from another. Nutritional screening: No deficits noted. Tuberculosis screening: No symptoms or risk factors identified. Assessment: 09:06 General: Pr seen ambulatory to the exam room. Pt is able to ambulate independently kd3 without SOB. EKG done in the room. . 09:22 Pain: Complains of pain in chest and left submandibular area Pain radiates to left kd3 submandibular area Pain began gradually. Neuro: Level of Consciousness is awake, alert, obeys commands, Oriented to person, place, time, situation. Cardiovascular: Reports chest pain. Respiratory: Airway is patent Trachea midline Respiratory effort is even, unlabored, Respiratory pattern is regular, symmetrical. Vital Signs: 08:53 BP 125 / 74; Pulse 87; Resp 16; Temp 97; Pulse Ox 98% on R/A; Weight 158.76 kg; Height iw 5 ft. 8 in. ; Pain 0/10; 09:30 BP 132 / 84; Pulse 87; Resp 15; Pulse Ox 95% on R/A; kd3 10:42 BP 126 / 74; Pulse 82; Resp 16; Pulse Ox 100% on R/A; kd3 08:53 Body Mass Index 53.22 (158.76 kg, 172.72 cm) iw 08:53 Pain Scale: Adult iw ED Course: 08:48 Patient arrived in ED. mg5 08:52 Triage completed. iw 08:53 Arm band placed on. iw 09:04 Dionte Weiner MD is Attending Physician. ec2 09:05 April Ramos, MICAELA is Primary Nurse. kd3 09:23 No provider procedures requiring assistance completed. Patient maintains SpO2 kd3 saturation greater than 95% on room air. 09:24 Patient has correct armband on for positive identification. Provided Education on: kd3 chest pain . Client placed on continuous cardiac and pulse oximetry monitoring. NIBP monitoring applied. gambling monitor on. 09:32 XRAY Chest (1 view) In Process Unspecified. EDMS 10:42 IV discontinued, intact, bleeding controlled, No redness/swelling at site. Pressure kd3 dressing applied. Administered Medications: No medications were administered Medication: 09:24 VIS not applicable for this client. kd3 Outcome: 10:06 Discharge ordered by . ec2 10:42 Discharged to home ambulatory, kd3 10:42 Condition: stable 10:42 Discharge instructions given to patient, Instructed on discharge instructions, follow up and referral plans. Demonstrated understanding of instructions, follow-up care, medications, Prescriptions given X 1, 10:43 Patient left the ED. kd3 Signatures: Dispatcher [employer] Mónica Hamilton RN RN April Delgado RN RN [email or web address] Viola Bourgeois mg5 Dionte Weiner MD MD ec2
--- NOTE | 2023-04-09 10:07 | EDPHYS ---
Physician Documentation [facility] Name: Emiliano Corona Age: 32 yrs Sex: Male : 1990 Arrival Date: 04/09/2023 Time: 08:46 Bed 15 Private MD: ED Physician Dionte Weiner HPI: 04/09 09:17 This 32 yrs old Male presents to ER via Ambulatory with complaints of Chest ec2 Pain - Burning. 09:17 Patient arrives today for evaluation of chest pain. States that he has a burning ec2 sensation has been ongoing since at least yesterday. Patient reports that he feels that the discomfort is worse with p.o. intake. Reports no nausea or vomiting, denies any shortness of breath. States that he recently started clindamycin, states that the symptoms started shortly after that. Patient reports that otherwise she has no exertional component associated with this.. Historical: - Allergies: 08:53 No Known Allergies; iw - PMHx: 08:53 None; iw - PSHx: 08:53 Appendectomy; Tonsillectomy; iw - Immunization history:: Adult Immunizations Client reports receiving the 2nd dose of the Covid vaccine. - Social history:: Smoking status: Patient denies any tobacco usage or history of. ROS: 09:17 Constitutional: as per hpi ec2 Exam: 09:17 Constitutional: GEN: NAD Head: atraumatic Eyes: EOMI Ears: External ears are ec2 normal. CV: regular rate LUNGS: no respiratory distress, no wheezes, no rales, no rhonchi ABD: non-distended MSK: no evidence of trauma NEURO: moves all extremities equally Vital Signs: 08:53 BP 125 / 74; Pulse 87; Resp 16; Temp 97; Pulse Ox 98% on R/A; Weight 158.76 kg; Height iw 5 ft. 8 in. ; Pain 0/10; 09:30 BP 132 / 84; Pulse 87; Resp 15; Pulse Ox 95% on R/A; kd3 10:42 BP 126 / 74; Pulse 82; Resp 16; Pulse Ox 100% on R/A; kd3 08:53 Body Mass Index 53.22 (158.76 kg, 172.72 cm) iw 08:53 Pain Scale: Adult iw MDM: 09:04 Patient medically screened. ec2 09:17 Data reviewed: vital signs. ED course: Patient arrives today for evaluation of chest ec2 pain. Examination remarkable for well-appearing nontoxic individual is otherwise in no acute distress. Will obtain a cardiac workup and further assess the patient. Currently considering processes such as ACS, low suspicion for PE or dissection. Additionally considering reflux/esophagitis/gastritis.. 09:20 ED course: EKG independently reviewed and interpreted by me, shows normal sinus rhythm, ec2 rate of 84, no acute ST segment elevations, intervals otherwise nonconcerning.. 09:51 ED course: Chest x-ray independently reviewed and interpreted by me, shows no acute ec2 intrathoracic process. CBC is reassuring.. 09:57 ED course: Metabolic profile is reassuring, troponin within normal ranges. Will defer ec2 repeat troponin given the duration of the patient's symptoms. Ultimately suspect gastritis versus some type of acid mediated disease. Will start the patient on a PPI and have her follow-up with her primary care doctor. Return precautions given. . 04/09 09:15 Order name: Basic Metabolic Panel; Complete Time: 09:57 ec2 04/09 09:15 Order name: CBC with Diff; Complete Time: 09:51 ec2 04/09 09:15 Order name: Troponin HS; Complete Time: 09:57 ec2 04/09 09:15 Order name: XRAY Chest (1 view); Complete Time: 09:51 ec2 04/09 09:15 Order name: EKG; Complete Time: 09:16 ec2 04/09 09:15 Order name: Cardiac monitoring; Complete Time: 09:22 ec2 04/09 09:15 Order name: EKG - Nurse/Tech; Complete Time: 09:21 ec2 04/09 09:15 Order name: IV Saline Lock; Complete Time: 09:21 ec2 04/09 09:15 Order name: Labs collected and sent; Complete Time: 09:22 ec2 04/09 09:15 Order name: O2 Per Protocol; Complete Time: :21 ec2 04/09 09:15 Order name: O2 Sat Monitoring; Complete Time: :22 ec2 Administered Medications: No medications were administered Disposition Summary: 04/09/23 10:06 Discharge Ordered Notes: Location: Home ec2 Condition: Stable ec2 Diagnosis - Acute gastritis ec2 Followup: ec2 - With: Private Physician - When: - Reason: Re-evaluation by your physician Discharge Instructions: - Discharge Summary Sheet ec2 - Gastritis, Adult ec2 Forms: - Medication Reconciliation Form ec2 - Thank You Letter ec2 - Antibiotic Education ec2 - Prescription Opioid Use ec2 - Patient Portal Instructions ec2 - Leadership Thank You Letter ec2 Prescriptions: - Protonix 40 mg Oral tablet, delayed release (enteric coated) - take 1 tablet ORAL route once daily; 14 tablet; Refills: 0, Product Selection ec2 Permitted Signatures: Dispatcher [employer] Mónica Hamilton RN RN iw Dionte Weiner MD MD ec2
[2023-04-09 12:27] VITALS: BP 126/74; TEMP 97; O2SAT 100
--- NOTE | 2023-04-10 13:24 | EKG ---
Test Date: 2023-04-09 Test Time: 09:08:25 Commodity Management Specialist: ANGELICA MEASUREMENT RESULTS: Intervals: Rate: 84 MN: 136 QRSD: 100 QT: 380 QTc: 449 [place]: P: 41 MN: 136 QRS: 17 T: 26 INTERPRETIVE STATEMENTS: Normal sinus rhythm Normal ECG Compared to ECG 02/18/2023 12:58:44 No significant changes Electronically Signed On 04-10-23 13:20:14 MANUFACTURING TECHNICIAN by Joe Gonzalez
== END ==
LOC: ER 08:46
DX: K29.00 Acute gastritis without bleeding (principal)
CPT/HCPCS: 36415; 71045; 80048; 84484; 85025; 93005; 99284

== ENCOUNTER 2023-08-05 22:52 | Emergency (ER) | payer OTHER ==
[2023-08-05] MEDS ORDERED: AMOX/K CLAV 875 MG TAB ONE (23:17)
--- NOTE | 2023-08-05 23:17 | EDPHYS ---
Physician Documentation [facility] Name: Emiliano Corona Age: 32 yrs Sex: Male : 1990 Arrival Date: 08/05/2023 Time: 22:52 Bed DX3 Private MD: ED Physician Zack Enriquez HPI: 08/04 23:29 This 32 yrs old Male presents to ER via Ambulatory with complaints of EAR ISSUES, kb Dizziness. 23:30 Pt is a 32 year old male who presents for right ear pain and a whooshing sound that kb started today. denies fever. States he had an episode of dizziness when the pain first came on. Denies drainage. Historical: - Allergies: 23:14 No Known Allergies; cm10 - Home Meds: 23:14 None [Active]; cm10 - PMHx: 23:14 Pre-diabetic; cm10 - PSHx: 23:14 Appendectomy; Tonsillectomy; cm10 - Immunization history:: Adult Immunizations up to date. - Infectious Disease History:: Denies. - Social history:: Smoking status: Patient denies any tobacco usage or history of. ROS: 23:29 Constitutional: As per HPI kb Exam: 23:29 Constitutional: This is a well developed, well nourished patient who is awake, alert, kb and in no acute distress. Head/Face: Normocephalic, atraumatic. Cardiovascular: Regular rate Respiratory: Respirations even and unlabored. No increased work of breathing. Talking in full sentences Skin: Warm, dry with normal turgor. Normal color. MS/ Extremity: Pulses equal, no cyanosis. Neurovascular intact. Full, normal range of motion. Neuro: Awake and alert, GCS 15, oriented to person, place, time, and situation. Moves all extremities. Normal gait. 23:29 ENT: External ear(s): are unremarkable, Ear canal(s): are normal, TM's: bulging, on the right, Vital Signs: 23:13 BP 146 / 88; Pulse 81; Resp 18; Temp 98.2; Pulse Ox 94% on R/A; Weight 163.29 kg; cm10 Height 5 ft. 8 in. ; Pain 1/10; 23:13 Body Mass Index 54.74 (163.29 kg, 172.72 cm) cm10 23:13 Pain Scale: Adult cm10 MDM: 22:57 Patient medically screened. kb 23:29 Data reviewed: vital signs, nurses notes. kb 23:30 Differential diagnosis: otitis media, otitis externa, ruptured TM, foreign body, acute kb otalgia. Counseling: I had a detailed discussion with the patient and/or guardian regarding the historical points, exam findings, and any diagnostic results supporting the discharge/admit diagnosis, the need for outpatient follow up, an ENT specialist, to return to the emergency department if symptoms worsen or persist or if there are any questions or concerns that arise at home. Administered Medications: 23:19 Drug: Amoxicillin-Clavulanate PO 875 mg PO once Route: PO; cm10 23:19 Follow up: Response: Medication administered at discharge. cm10 Disposition Summary: 08/05/23 23:16 Discharge Ordered Notes: Location: Home kb Condition: Stable kb Diagnosis - Otitis media, unspecified, right ear kb Followup: kb - With: Emergency Department - When: As needed - Reason: Worsening of condition Followup: kb - With: Private Physician - When: 2 - 3 days - Reason: Recheck today's complaints, Continuance of care, Re-evaluation by your physician Discharge Instructions: - Discharge Summary Sheet kb - Otitis Media, Adult, [id number] kb Forms: - Medication Reconciliation Form kb - Antibiotic Education kb - Prescription Opioid Use kb - Patient Portal Instructions kb - Leadership Thank You Letter kb Prescriptions: - Amoxicillin 875 mg Oral Tablet - take 1 tablet ORAL route every 12 hours for 10 days; 20 tablet; Refills: 0, kb Product Selection Permitted Signatures: Jessi Euceda FNP-C FNP-Bettie Stack, RN RN cm10
--- NOTE | 2023-08-05 23:17 | ER ---
Nurse's Notes [facility] Name: Emiliano Corona Age: 32 yrs Sex: Male : 1990 Arrival Date: 08/05/2023 Time: 22:52 Bed DX3 Private MD: Diagnosis: Otitis media, unspecified, right ear Presentation: 08/04 23:13 Chief complaint: Patient states: Woke up at 1730 today and was having some "whooshing" cm10 in his right ear and some pressure. Pt reports that he had an episode of dizziness that has since resolved. Coronavirus screen: Client denies travel out of the [place] in the last 14 days. At this time, the client does not indicate any symptoms associated with coronavirus-19. Ebola Screen: Patient denies travel to an Ebola-affected area in the 21 days before illness onset. No symptoms or risks identified at this time. Initial Sepsis Screen: Does the patient meet any 2 criteria? No. Patient's initial sepsis screen is negative. Does the patient have a suspected source of infection? No. Patient's initial sepsis screen is negative. Risk Assessment: Do you want to hurt yourself or someone else? Patient reports no desire to harm self or others. Onset of symptoms was August 05, 2023. 23:13 Method Of Arrival: Ambulatory cm10 23:13 Acuity: SE 4 cm10 Triage Assessment: 23:14 General: Appears in no apparent distress. comfortable, Behavior is calm, cooperative. cm10 Pain: Complains of pain in right ear Pain does not radiate. Pain currently is 1 out of 10 on a pain scale. Quality of pain is described as pressure, Pain began 4 hours ago. EENT: Reports Whooshing in right ear and pressure. Neuro: No deficits noted. Level of Consciousness is awake, alert, obeys commands, Oriented to person, place, time, situation. Respiratory: No deficits noted. Airway is patent Respiratory effort is even, unlabored, Respiratory pattern is regular, symmetrical. : No deficits noted. No signs and/or symptoms were reported regarding the genitourinary system. Derm: No deficits noted. Skin is healthy with good turgor, Skin is pink, warm \\T\\ dry. Musculoskeletal: No deficits noted. Range of motion: intact in all extremities. Historical: - Allergies: 23:14 No Known Allergies; cm10 - Home Meds: 23:14 None [Active]; cm10 - PMHx: 23:14 Pre-diabetic; cm10 - PSHx: 23:14 Appendectomy; Tonsillectomy; cm10 - Immunization history:: Adult Immunizations up to date. - Infectious Disease History:: Denies. - Social history:: Smoking status: Patient denies any tobacco usage or history of. Screenin:15 [facility] ED Fall Risk Assessment (Adult) History of falling in the last 3 months, cm10 including since admission No falls in past 3 months (0 pts) Confusion or Disorientation No (0 pts) Intoxicated or Sedated No (0 pts) Impaired Gait No (0 pts) Mobility Assist Device Used No (0 pt) Altered Elimination No (0 pt) Score/Fall Risk Level 0 - 2 = Low Risk Oriented to surroundings, Maintained a safe environment, Hourly rounding (assess needs \\T\\ fall precautionary measures) done. Abuse screen: Denies threats or abuse. Denies injuries from another. Nutritional screening: No deficits noted. Tuberculosis screening: No symptoms or risk factors identified. Vital Signs: 23:13 BP 146 / 88; Pulse 81; Resp 18; Temp 98.2; Pulse Ox 94% on R/A; Weight 163.29 kg; cm10 Height 5 ft. 8 in. ; Pain 1/10; 23:13 Body Mass Index 54.74 (163.29 kg, 172.72 cm) cm10 23:13 Pain Scale: Adult cm10 ED Course: 22:54 Patient arrived in ED. gm2 22:56 Jessi [facility]uceda [facility]C [facility] kb 22:57 Zack Enriquez MD is Attending Physician. kb 23:14 Triage completed. cm10 23:15 Arm band placed on Patient placed in waiting room. cm10 23:16 Patient has correct armband on for positive identification. Provided Education on: ER cm10 process and procedures. Cardiac monitoring not applicable on this patient. 23:16 No provider procedures requiring assistance completed. Patient did not have IV access cm10 during this emergency room visit. Administered Medications: 23:19 Drug: Amoxicillin-Clavulanate PO 875 mg PO once Route: PO; cm10 23:19 Follow up: Response: Medication administered at discharge. cm10 Medication: 23:15 VIS not applicable for this client. cm10 Outcome: 23:16 Discharge ordered by MD. sneed 23:19 Discharged to home ambulatory, with significant other, cm10 23:19 Condition: good 23:19 Discharge instructions given to patient, Instructed on discharge instructions, follow up and referral plans. medication usage, Demonstrated understanding of instructions, follow-up care, medications, Prescriptions given X 1, 23:19 Patient left the ED. cm10 Signatures: Jessi Euceda FNP-C FNP-Bettie Stack RN RN cm10 Jeanne Salmon [facility]
[2023-08-05 23:39] VITALS: BP 146/88; TEMP 98.2; O2SAT 94
== END 2023-08-05 23:19 | disposition home or self-care (01) ==
LOC: ER 22:52
DX: H66.91 Otitis media, unspecified, right ear (principal)

== ENCOUNTER 2024-05-17 06:37 | Emergency (ER) | payer OTHER ==
[2024-05-17] MEDS ORDERED: METHYLPREDNISOLONE 125 MG INJ ONE (07:01)
[2024-05-17] MEDS ORDERED: FAMOTIDINE 20 MG/2 ML VIAL IV ONE (07:02)
[2024-05-17] MEDS ORDERED: DIPHENHYDRAMINE 50 MG/ML VIAL ONE (07:02)
[2024-05-17] MEDS ORDERED: NA CHLORIDE 0.9% 1,000 ML ONE (07:02)
[2024-05-17 07:24] LABS: Absolute Eosinophils 0.2 K/uL (0-0.5); Absolute Lymphocytes (CBC) 2.9 K/uL (0.7-4.9); Absolute Monocytes 0.6 K/uL (0.1-1.3); Absolute Neutrophil 4.1 K/uL (1.8-8.0); Basophils % 0.6 % (0-1.3); Hematocrit 43.9 % (39.6-49.0); Hemoglobin 15.1 g/dL (13.6-17.9); Lymphocytes % 37.3 % (15.3-44.8); MCH 30.1 pg (27.0-35.0); MCHC 34.4 g/dL (32.0-36.0); MCV 87.6 fL (80-100); Monocytes % 7.1 % (3.3-12.3); Platelets 300 thou/uL (152-406); RBC Red Blood Cell Count 5.02 M/uL (4.33-5.43); Red Cell Distribution Width 13.7 % (12.1-15.2)
[2024-05-17 07:43] LABS: Sqamous Epithelial None Seen /HPF (None Seen); Urine Bacteria None Seen /HPF (<20); Urine Bilirubin NEGATIVE (Negative); Urine Blood Negative (Negative); Urine Clarity Clear (Clear); Urine Color Light-Yellow (Yellow); Urine Culture Reflex Order NOT NEEDED; Urine Glucose NEGATIVE (Negative); Urine Ketones NEGATIVE (Negative); Urine Microscopic Reflex YN ORDER UMIC; Urine Mucus Slight /HPF (None Seen); Urine Nitrite NEGATIVE (Negative); Urine Protein NEGATIVE (Negative); Urine RBC <5 /HPF (None Seen); Urine Urobilinogen Normal (Normal); Urine WBC None Seen /HPF (<5); Urine pH 5.5 (5.0-7.0)
[2024-05-17 07:49] LABS: Albumin 3.5 g/dL (3.4-5.0); Albumin/Globulin Ratio 0.9 (1.1-1.8); Anion Gap 7.5 mEq/L (5.0-15.0); Bilirubin Total 0.6 mg/dL (0.2-1.0); Globulin 3.7 g/dL (2.3-3.5); Potassium 3.5 mEq/L (3.5-5.1); Protein, Total 7.2 g/dL (6.4-8.2)
--- NOTE | 2024-05-17 09:42 | ER ---
Nurse's Notes [facility] Name: Emiliano Corona Age: 33 yrs Sex: Male : 1990 Arrival Date: 05/17/2024 Time: 06:37 Bed 20 Private MD: Diagnosis: Allergic reaction;Chest pain, unspecified Presentation: 05/17 06:47 Chief complaint: Patient states: chest discomfort, tightness and itching to bilateral ss hands and feet that began when he awoke 15 minutes prior to arrival. Pt also reports on the way to the ER he felt as if his tongue were a little swollen. Coronavirus screen: Client denies travel out of the [place] in the last 14 days. Ebola Screen: Patient denies exposure to infectious person. Patient denies travel to an Ebola-affected area in the 21 days before illness onset. Initial Sepsis Screen: Does the patient meet any 2 criteria? No. Patient's initial sepsis screen is negative. Does the patient have a suspected source of infection? No. Patient's initial sepsis screen is negative. Risk Assessment: Do you want to hurt yourself or someone else? Patient reports no desire to harm self or others. Onset of symptoms was May 17, 2024. 06:47 Method Of Arrival: Ambulatory ss 06:47 Acuity: SE 3 ss Historical: - Allergies: 06:49 No Known Allergies; ss - Home Meds: 06:49 None [Active]; ss - PMHx: 06:49 pre-diabetic; ss - PSHx: 06:49 Appendectomy; Tonsillectomy; ss - Immunization history:: Client reports receiving the 2nd dose of the Covid vaccine, Client reports receiving the 1st dose of the Covid vaccine, Flu vaccine is not up to date. - Infectious Disease History:: Denies. - Social history:: Smoking status: Patient denies any tobacco usage or history of. Screenin:25 [facility] ED Fall Risk Assessment (Adult) History of falling in the last 3 months, ay including since admission No falls in past 3 months (0 pts) Confusion or Disorientation No (0 pts) Intoxicated or Sedated No (0 pts) Impaired Gait No (0 pts) Mobility Assist Device Used No (0 pt) Altered Elimination No (0 pt) Score/Fall Risk Level 0 - 2 = Low Risk Oriented to surroundings, Maintained a safe environment, Educated pt \T\ family on fall prevention, incl call for assistance when getting out of bed. Abuse screen: Denies threats or abuse. Nutritional screening: No deficits noted. Tuberculosis screening: No symptoms or risk factors identified. Assessment: 07:25 General: Appears in no apparent distress. comfortable, Behavior is calm, cooperative. ay Pain: Complains of pain in chest Pain does not radiate. Pain currently is 1 out of 10 on a pain scale. Pain began 2 hours ago. Neuro: Level of Consciousness is awake, alert, obeys commands, Oriented to person, place, time, situation, Gait is Speech is normal. Cardiovascular: Capillary refill < 3 seconds Rhythm is regular. Respiratory: Reports shortness of breath at rest Airway is patent Respiratory effort is even, unlabored, Respiratory pattern is regular, symmetrical, Denies cough. GI: Abdomen is obese. : No signs and/or symptoms were reported regarding the genitourinary system. EENT: No signs and/or symptoms were reported regarding the EENT system. Derm: No signs and/or symptoms reported regarding the dermatologic system. Musculoskeletal: No signs and/or symptoms reported regarding the musculoskeletal system. 08:00 Reassessment: Patient is alert, oriented x 3, equal unlabored respirations, skin aa5 warm/dry/pink. Patient states symptoms have improved. 09:20 Reassessment: Patient is alert, oriented x 3, equal unlabored respirations, skin aa5 warm/dry/pink. Patient states symptoms have improved. Vital Signs: 06:47 BP 153 / 85; Pulse 100; Resp 17; Pulse Ox 98% on R/A; Weight 158.76 kg; Height 5 ft. 8 ss in. ; Pain 2/10; 06:48 Temp 98.3(O); af3 08:00 BP 101 / 62; Pulse 71; Resp 19 S; Pulse Ox 96% on R/A; aa5 09:20 BP 104 / 76; Pulse 68; Resp 18 S; Pulse Ox 97% on R/A; aa5 06:47 Body Mass Index 53.22 (158.76 kg, 172.72 cm) ss 06:47 Pain Scale: Adult ss [place] Coma Score: 07:25 Eye Response: spontaneous(4). Motor Response: obeys commands(6). Verbal Response: ay oriented(5). Total: 15. ED Course: 06:41 Patient arrived in ED. gm2 06:45 Nitesh Alvarez MD is Attending Physician. sp4 06:48 EKG done, by loader technician. af3 06:49 Triage completed. ss 06:49 Arm band placed on right wrist. ss 06:55 Inserted saline lock: 20 gauge in right antecubital area, using aseptic technique. af3 Blood collected. Flushed with 10 mL NS. 07:15 Sera Palomino, RN is Primary Nurse. aa5 07:25 Patient has correct armband on for positive identification. Bed in low position. Call ay light in reach. Side rails up X2. Adult w/ patient. color television console monitor on. Pulse ox on. NIBP on. 07:29 Attending Physician role handed off by Nitesh Alvarez MD ms3 07:29 Perez Wild DO is Attending Physician. ms3 09:20 Patient maintains SpO2 saturation greater than 95% on room air. aa5 09:39 Khang Choi DO is Referral Physician. ms3 09:55 No provider procedures requiring assistance completed. IV discontinued, intact, aa5 bleeding controlled, No redness/swelling at site. Pressure dressing applied. Administered Medications: 07:24 Drug: Famotidine IVP 20 mg IVP once; dilute with 10 mL 0.9% NaCl; give over 2 minutes ay Route: IVP; Site: right antecubital; 07:30 Follow up: Response: No adverse reaction aa5 07:24 Drug: NS 0.9% IV 1000 ml IV at 1 bolus Per protocol; to be given as a bolus over 60 ay minutes Route: IV; Rate: 1 bolus; Site: right antecubital; 08:24 Follow up: IV Status: Completed infusion; IV Intake: 1000ml aa5 07:25 Drug: diphenhydrAMINE IVP 50 mg IVP once Route: IVP; Site: right antecubital; ay 07:30 Follow up: Response: No adverse reaction aa5 07:25 Drug: MethylPrednisoLONE IVP 125 mg IVP once Route: IVP; Site: right antecubital; ay 07:30 Follow up: Response: No adverse reaction aa5 Medication: 07:25 VIS not applicable for this client. ay Intake: 08:24 IV: 1000ml; Total: 1000ml. aa5 Outcome: 09:42 Discharge ordered by . ms3 09:57 Discharged to home ambulatory, with significant other, aa5 09:57 Condition: improved 09:57 Discharge instructions given to patient, Instructed on discharge instructions, follow up and referral plans. medication usage, Demonstrated understanding of instructions, follow-up care, medications, Prescriptions given X , 09:59 Patient left the ED. ll1 Signatures: Sera Palomino RN RN aa5 Mitzi Alvarenga RN RN ss Lewis, Lynsay, RN RN ll1 Perez Wild, DO DO ms3 Nitesh Alvarez MD MD sp4 Jeanne Salmon gm2 Hiwot Kim af3 Yeison Powell, RN RN ay
--- NOTE | 2024-05-17 09:42 | EDPHYS ---
Physician Documentation [facility] Name: Emiliano Corona Age: 33 yrs Sex: Male : 1990 Arrival Date: 05/17/2024 Time: 06:37 Bed 20 Private MD: ED Physician Perez Wild HPI: 05/17 06:45 This 33 yrs old Male presents to ER via Unassigned with complaints of Chest sp4 Pain, Facial Swelling, Possible Kidney Stone. 07:30 Emiliano Corona, a 33-year-old male, presents to the emergency department with an ms3 allergic reaction. He reports waking up with generalized itchiness, particularly on his back, hands, and the bottoms of his feet, which were also sore. He experienced tingling in his lips, tightness under his chin, and felt like his tongue was swelling, leading to difficulty breathing and chest pain upon arrival. He also mentions tightness and tingling in his fingertips. He consumed a new type of ice cream the night before, but denies any new colognes, lotions. His discomfort level is currently a 3 out of 10.. Historical: - Allergies: 06:49 No Known Allergies; ss - Home Meds: 06:49 None [Active]; ss - PMHx: 06:49 pre-diabetic; ss - PSHx: 06:49 Appendectomy; Tonsillectomy; ss - Immunization history:: Client reports receiving the 2nd dose of the Covid vaccine, Client reports receiving the 1st dose of the Covid vaccine, Flu vaccine is not up to date. - Infectious Disease History:: Denies. - Social history:: Smoking status: Patient denies any tobacco usage or history of. ROS: 07:30 Constitutional: Negative for fever, and chills. Cardiovascular: Negative for chest ms3 pain, and palpitations. Respiratory: Negative for shortness of breath, cough, wheezing, and pleuritic chest pain, Abdomen/GI: Negative for abdominal pain, nausea, vomiting, diarrhea, and constipation, MS/Extremity: Negative for injury and deformity, 07:30 Skin: Positive for erythema, Exam: 07:30 Constitutional: This is a well developed, well nourished patient who is awake, alert, ms3 and in no acute distress. Cardiovascular: Regular rate and rhythm with a normal S1 and S2. No gallops, murmurs, or rubs. Normal PMI, no JVD. No pulse deficits. Respiratory: Lungs have equal breath sounds bilaterally, clear to auscultation and percussion. No rales, rhonchi or wheezes noted. No increased work of breathing, no retractions or nasal flaring. Abdomen/GI: Soft, non-tender, with normal bowel sounds. No distension or tympany. No guarding or rebound. No evidence of tenderness throughout. Skin: Warm, dry with normal turgor. Normal color with no rashes, no lesions, and no evidence of cellulitis. MS/ Extremity: Pulses equal, no cyanosis. Neurovascular intact. Full, normal range of motion. 07:32 ECG was reviewed by the Attending Physician. ms3 Vital Signs: 06:47 BP 153 / 85; Pulse 100; Resp 17; Pulse Ox 98% on R/A; Weight 158.76 kg; Height 5 ft. 8 ss in. ; Pain 2/10; 06:48 Temp 98.3(O); af3 08:00 BP 101 / 62; Pulse 71; Resp 19 S; Pulse Ox 96% on R/A; aa5 09:20 BP 104 / 76; Pulse 68; Resp 18 S; Pulse Ox 97% on R/A; aa5 06:47 Body Mass Index 53.22 (158.76 kg, 172.72 cm) ss 06:47 Pain Scale: Adult ss [place] Coma Score: 07:25 Eye Response: spontaneous(4). Motor Response: obeys commands(6). Verbal Response: ay oriented(5). Total: 15. MDM: 07:29 Medical Screening Exam initiated ms3 07:30 Differential diagnosis: abnormal EKG, Allergic reaction vs HTN. ms3 11:29 HEART Score: History: Slightly Suspicious (0), ECG: Normal (0), Age: < or = 45 years ms3 (0), Risk Factors: No Risk Factors Known (0), Troponin: < or = 1 x Normal Limit (0), Total Score = 0. Data reviewed: vital signs, nurses notes, lab test result(s), EKG, and as a result, I will discharge patient. I considered the following discharge prescriptions or medication management in the emergency department Medications were administered in the Emergency Department. See MAR. Independent interpretation of the following test(s) in the Emergency Department EKG: See my EKG interpretation above. Counseling: I had a detailed discussion with the patient and/or guardian regarding the historical points, exam findings, and any diagnostic results supporting the discharge/admit diagnosis, lab results, the need for outpatient follow up, to return to the emergency department if symptoms worsen or persist or if there are any questions or concerns that arise at home. Special discussion: I discussed with the patient/guardian in detail that at this point there is no indication for admission to the hospital. It is understood, however, that if the symptoms persist or worsen the patient needs to return immediately for re-evaluation. ED course: On reevaluation patient symptoms have improved. Patient is alert and oriented x 4, no apparent distress, nontoxic-appearing, speaking full sentences. Discussed labs, negative troponin, normal EKG with patient his . Patient to follow-up with primary care physician in 2 to 3 days. Patient is understand and agree with plan. Return precautions discussed include worsening symptoms, or any other concerns. Patient given prescription for prednisone.. 05/17 06:46 Order name: CBC with Diff; Complete Time: 09:06 sp4 05/17 06:46 Order name: CMP; Complete Time: 09:06 sp4 05/17 06:46 Order name: Lipase; Complete Time: 09:06 sp4 05/17 06:46 Order name: Urinalysis w/ reflexes; Complete Time: 09:06 sp4 05/17 07:30 Order name: Troponin High Sensitivity; Complete Time: 09:06 ms3 05/17 06:46 Order name: EKG; Complete Time: 06:46 sp4 05/17 06:46 Order name: IV Saline Lock; Complete Time: 06:55 sp4 05/17 06:46 Order name: Labs collected and sent; Complete Time: 06:55 sp4 EC:32 Rate is 95 beats/min. Rhythm is regular. QRS [place] is Normal. AR interval is normal. QRS ms3 interval is normal. Clinical impression: Normal ECG. Interpreted by me. Reviewed by me. Administered Medications: 07:24 Drug: Famotidine IVP 20 mg IVP once; dilute with 10 mL 0.9% NaCl; give over 2 minutes ay Route: IVP; Site: right antecubital; 07:30 Follow up: Response: No adverse reaction aa5 07:24 Drug: NS 0.9% IV 1000 ml IV at 1 bolus Per protocol; to be given as a bolus over 60 ay minutes Route: IV; Rate: 1 bolus; Site: right antecubital; 08:24 Follow up: IV Status: Completed infusion; IV Intake: 1000ml aa5 07:25 Drug: diphenhydrAMINE IVP 50 mg IVP once Route: IVP; Site: right antecubital; ay 07:30 Follow up: Response: No adverse reaction aa5 07:25 Drug: MethylPrednisoLONE IVP 125 mg IVP once Route: IVP; Site: right antecubital; ay 07:30 Follow up: Response: No adverse reaction aa5 Disposition Summary: 05/17/24 09:42 Discharge Ordered Notes: Location: Home ms3 Condition: Stable ms3 Diagnosis - Allergic reaction ms3 - Chest pain, unspecified ms3 Followup: ms3 - With: Khang Choi DO - When: 2 - 3 days - Reason: Recheck today's complaints Discharge Instructions: - Discharge Summary Sheet ms3 - Nonspecific Chest Pain, Adult ms3 - Allergies, Adult, [id number] ms3 Forms: - Medication Reconciliation Form ms3 - Antibiotic Education ms3 - Prescription Opioid Use ms3 - Patient Portal Instructions ms3 - Leadership Thank You Letter ms3 Prescriptions: - Prednisone 20 mg Oral Tablet - take 2 tablets ORAL route once daily for 5 days; 10 tablet; Refills: 0, Product ms3 Selection Permitted Signatures: Dispatcher [employer] Mitzi Blanton RN RN Perez Castillo DO DO ms3 Nitesh Alvarez MD MD sp4 Yeison Powell RN RN ay Calderon, Audri RN aa5
[2024-05-17 10:25] VITALS: TEMP 98.3
[2024-05-17 10:32] VITALS: BP 104/76; O2SAT 97
--- NOTE | 2024-05-18 12:15 | EKG ---
Test Date: 2024-05-17 Test Time: 06:44:52 Endoscopy Technician: AF MEASUREMENT RESULTS: Intervals: Rate: 95 OH: 138 QRSD: 90 QT: 362 QTc: 454 [place]: P: 56 [place]: 138 QRS: 25 T: 45 INTERPRETIVE STATEMENTS: Normal sinus rhythm Normal ECG Compared to ECG 04/09/2023 09:08:25 No significant changes Electronically Signed On 05-18-24 12:12:50 PRECISION MECHANICAL INSTRUMENT MAKER by Israel Manuel
== END 2024-05-17 09:59 | disposition home or self-care (01) ==
LOC: ER 06:37
DX: R07.9 Chest pain, unspecified (principal); L50.9 Urticaria, unspecified; R20.2 Paresthesia of skin
CPT/HCPCS: 96361; 93005; 85025; 81001; 36415; 84484; 83690; 80053; 96375; 96374; 99285; J1200; J2919; J7030

== ENCOUNTER 2024-06-13 22:53 | Emergency (ER) | payer OTHER ==
[2024-06-13] MEDS ORDERED: ALPRAZOLAM 0.5 MG TABLET ONE (23:45)
--- NOTE | 2024-06-13 23:58 | ER ---
Nurse's Notes [facility] Name: Emiliano Corona Age: 33 yrs Sex: Male : 1990 Arrival Date: 06/13/2024 Time: 22:53 Bed 7 Private MD: Diagnosis: Anxiety disorder, unspecified Presentation: 06/13 23:11 Chief complaint: Patient states: stiff neck two nights ago and then started having bm8 panic attacks because of it. Coronavirus screen: At this time, the client does not indicate any symptoms associated with coronavirus-19. Ebola Screen: Patient negative for fever greater than or equal to 101.5 degrees Fahrenheit, and additional compatible Ebola Virus Disease symptoms Patient denies exposure to infectious person. Patient denies travel to an Ebola-affected area in the 21 days before illness onset. No symptoms or risks identified at this time. Initial Sepsis Screen: Does the patient meet any 2 criteria? No. Patient's initial sepsis screen is negative. Does the patient have a suspected source of infection? No. Patient's initial sepsis screen is negative. Risk Assessment: Do you want to hurt yourself or someone else? Patient reports no desire to harm self or others. Onset of symptoms was June 11, 2024 at 08:00. 23:11 Method Of Arrival: Ambulatory bm8 23:11 Acuity: SE 3 bm8 Triage Assessment: 23:13 General: Appears in no apparent distress. comfortable, Behavior is calm, cooperative, bm8 appropriate for age. Pain: Complains of pain in neck Pain currently is 3 out of 10 on a pain scale. EENT: No deficits noted. No signs and/or symptoms were reported regarding the EENT system. Neuro: No deficits noted. Level of Consciousness is awake, alert, obeys commands, Oriented to person, place, time, situation, Appropriate for age. Cardiovascular: Reports palpitations, Heart tones S1 S2 present Capillary refill < 3 seconds in bilateral fingers Patient's skin is warm and dry. Respiratory: Airway is patent Respiratory effort is even, unlabored, Respiratory pattern is regular, symmetrical, Breath sounds are clear bilaterally. GI: No signs and/or symptoms were reported involving the gastrointestinal system. : No signs and/or symptoms were reported regarding the genitourinary system. Derm: No signs and/or symptoms reported regarding the dermatologic system. Musculoskeletal: No deficits noted. No signs and/or symptoms reported regarding the musculoskeletal system. Historical: - Allergies: 23:13 No Known Allergies; bm8 - Home Meds: 23:13 None [Active]; bm8 - PMHx: 23:13 pre-diabetic; Anxiety; bm8 - PSHx: 23:13 Appendectomy; Tonsillectomy; bm8 - Immunization history:: Adult Immunizations up to date. - Infectious Disease History:: Denies. - Social history:: Smoking status: Patient denies any tobacco usage or history of. Screenin/03 00:04 [facility] ED Fall Risk Assessment (Adult) History of falling in the last 3 months, jb4 including since admission No falls in past 3 months (0 pts) Confusion or Disorientation No (0 pts) Intoxicated or Sedated No (0 pts) Impaired Gait No (0 pts) Mobility Assist Device Used No (0 pt) Altered Elimination No (0 pt) Score/Fall Risk Level 0 - 2 = Low Risk Oriented to surroundings, Maintained a safe environment, Educated pt \T\ family on fall prevention, incl call for assistance when getting out of bed, Assessed \T\ reinforced patient's understanding of fall precautions, Hourly rounding (assess needs \T\ fall precautionary measures) done, Used ambulatory aids as needed (educated on \T\ assisted with), Used gait belt as appropriate. Abuse screen: Denies threats or abuse. Nutritional screening: No deficits noted. Tuberculosis screening: No symptoms or risk factors identified. Assessment: 00:04 Reassessment: Patient appears in no apparent distress at this time. Patient and/or jb4 family updated on plan of care and expected duration. Pain level reassessed. Patient is alert, oriented x 3, equal unlabored respirations, skin warm/dry/pink. Patient denies pain at this time. Patient states feeling better. Patient states symptoms have improved. General: Appears in no apparent distress. comfortable, Behavior is calm, cooperative, appropriate for age. Pain: Denies pain. Neuro: No deficits noted. Level of Consciousness is awake, alert, obeys commands, Oriented to person, place, time, situation, Appropriate for age. Cardiovascular: Heart tones S1 S2 present Capillary refill < 3 seconds in bilateral fingers. Respiratory: Airway is patent Respiratory effort is even, unlabored, Respiratory pattern is regular, symmetrical. GI: No signs and/or symptoms were reported involving the gastrointestinal system. : No signs and/or symptoms were reported regarding the genitourinary system. EENT: No signs and/or symptoms were reported regarding the EENT system. Derm: No signs and/or symptoms reported regarding the dermatologic system. Musculoskeletal: No signs and/or symptoms reported regarding the musculoskeletal system. Vital Signs: 06/13 23:11 BP 168 / 91; Pulse 86; Resp 18; Temp 98.1; Pulse Ox 98% ; Weight 154.67 kg; Height 5 bm8 ft. 8 in. ; Pain 3/10; 06/14 00:04 BP 152 / 93; Pulse 87; Resp 17; Temp 98.1; Pulse Ox 98% ; Pain 0/10; jb4 06/13 23:11 Body Mass Index 51.85 (154.67 kg, 172.72 cm) bm8 06/13 23:11 Pain Scale: Adult bm8 06/14 00:04 Pain Scale: Adult jb4 [place] Coma Score: 00:04 Eye Response: spontaneous(4). Motor Response: obeys commands(6). Verbal Response: jb4 oriented(5). Total: 15. ED Course: 06/13 22:55 Patient arrived in ED. jj6 23:01 Jin Choi MD is Attending Physician. sp3 23:13 Triage completed. bm8 23:13 Arm band placed on left wrist. bm8 23:16 Pako Bundy, MICAELA is Primary Nurse. jb4 06/14 00:04 Patient has correct armband on for positive identification. Bed in low position. Call jb4 light in reach. Side rails up X 1. Provided Education on: post er care. Client placed on continuous cardiac and pulse oximetry monitoring. NIBP monitoring applied. youth nutritional monitor on. Pulse ox on. NIBP on. Door closed. Noise minimized. Warm blanket given. Pillow given. Verbal reassurance given. Head of bed elevated. 00:04 No provider procedures requiring assistance completed. Patient did not have IV access jb4 during this emergency room visit. Administered Medications: 06/13 23:47 Drug: ALPRAZolam PO Tablet 0.5 mg PO once Route: PO; jb4 06/14 00:07 Follow up: Response: No adverse reaction jb4 Medication: 00:04 VIS not applicable for this client. jb4 Outcome: 06/13 23:57 Discharge ordered by . sp3 06/14 00:04 Discharged to home ambulatory, jb4 Condition: stable Discharge instructions given to patient, family, Instructed on discharge instructions, follow up and referral plans. safe sex practices, safety practices, Demonstrated understanding of instructions, follow-up care, medications, 00:07 Patient left the ED. jb4 Signatures: Pako Bundy, RN RN jb4 Jin Choi MD MD sp3 Soraida Janej6 Giuliano Bell, RN RN bm8
--- NOTE | 2024-06-13 23:58 | EDPHYS ---
Physician Documentation [facility] Name: Emiliano Corona Age: 33 yrs Sex: Male : 1990 Arrival Date: 06/13/2024 Time: 22:53 Bed 7 Private MD: ED Physician Jin Choi HPI: 06/13 23:38 This 33 yrs old Male presents to ER via Ambulatory with complaints of Anxiety. sp3 23:38 34-year-old male with history of anxiety and obesity now presents to the ED with chief sp3 complaint anxiety attack off and on for the last 24 hours. Patient states he feels anxiety coming on with tachycardia palpitations which then self resolved. Mild tension in the neck as well. He denies any chest pain, shortness of breath, trauma, fever, headache, abdominal pain, vomiting, diarrhea, numbness or tingling, or any other signs or symptoms on ROS at this time.. Historical: - Allergies: 23:13 No Known Allergies; bm8 - Home Meds: 23:13 None [Active]; bm8 - PMHx: 23:13 pre-diabetic; Anxiety; bm8 - PSHx: 23:13 Appendectomy; Tonsillectomy; bm8 - Immunization history:: Adult Immunizations up to date. - Infectious Disease History:: Denies. - Social history:: Smoking status: Patient denies any tobacco usage or history of. ROS: 23:39 Constitutional: Negative for fever, chills, and weight loss, Eyes: Negative for injury, sp3 pain, redness, and discharge, ENT: Negative for injury, pain, and discharge, Neck: Negative for injury, pain, and swelling, Respiratory: Negative for shortness of breath, cough, wheezing, and pleuritic chest pain, Abdomen/GI: Negative for abdominal pain, nausea, vomiting, diarrhea, and constipation, Back: Negative for injury and pain, MS/Extremity: Negative for injury and deformity, Skin: Negative for injury, rash, and discoloration, Neuro: Negative for headache, weakness, numbness, tingling, and seizure, Allergy/Immunology: Negative for hives, rash, and allergies, Endocrine: Negative for neck swelling, polydipsia, polyuria, polyphagia, and marked weight changes, Hematologic/Lymphatic: Negative for swollen nodes, abnormal bleeding, and unusual bruising, 23:39 All other systems are negative, Exam: 23:39 Constitutional: This is a well developed, well nourished patient who is awake, alert, sp3 and in no acute distress. Head/Face: Normocephalic, atraumatic. Eyes: Pupils equal round and reactive to light, extra-ocular motions intact. Lids and lashes normal. Conjunctiva and sclera are non-icteric and not injected. Cornea within normal limits. Periorbital areas with no swelling, redness, or edema. ENT: Nares patent. No nasal discharge, no septal abnormalities noted. External auditory canals are clear. Oropharynx with no redness, swelling, or masses, exudates, or evidence of obstruction, uvula midline. Mucous membranes moist. Neck: Trachea midline, no thyromegaly or masses palpated, and no cervical lymphadenopathy. Supple, full range of motion without nuchal rigidity, or vertebral point tenderness. No Meningismus. Chest/axilla: Normal chest wall appearance and motion. Nontender with no deformity. No lesions are appreciated. Cardiovascular: Regular rate and rhythm with a normal S1 and S2. No gallops, murmurs, or rubs. Normal PMI, no JVD. No pulse deficits. Respiratory: Lungs have equal breath sounds bilaterally, clear to auscultation and percussion. No rales, rhonchi or wheezes noted. No increased work of breathing, no retractions or nasal flaring. Abdomen/GI: Soft, non-tender, with normal bowel sounds. No distension or tympany. No guarding or rebound. No evidence of tenderness throughout. Back: No spinal tenderness. No costovertebral tenderness. Full range of motion. Skin: Warm, dry with normal turgor. Normal color with no rashes, no lesions, and no evidence of cellulitis. MS/ Extremity: Pulses equal, no cyanosis. Neurovascular intact. Full, normal range of motion. Neuro: Awake and alert, GCS 15, oriented to person, place, time, and situation. Cranial nerves II-XII grossly intact. Motor strength 5/5 in all extremities. Sensory grossly intact. Cerebellar exam normal. Normal gait. 23:39 Psych: Patient with mild anxiety noted.. 23:56 ECG was reviewed by the Attending Physician. EKG demonstrates normal sinus rhythm 85 sp3 bpm with normal intervals, normal QRS, normal axis, normal ST/T-segment's without evidence of acute ischemia. Vital Signs: 23:11 BP 168 / 91; Pulse 86; Resp 18; Temp 98.1; Pulse Ox 98% ; Weight 154.67 kg; Height 5 bm8 ft. 8 in. ; Pain 3/10; 06/14 00:04 BP 152 / 93; Pulse 87; Resp 17; Temp 98.1; Pulse Ox 98% ; Pain 0/10; jb4 06/13 23:11 Body Mass Index 51.85 (154.67 kg, 172.72 cm) bm8 06/13 23:11 Pain Scale: Adult bm8 06/14 00:04 Pain Scale: Adult jb4 [place] Coma Score: 00:04 Eye Response: spontaneous(4). Motor Response: obeys commands(6). Verbal Response: jb4 oriented(5). Total: 15. MDM: 06/13 23:18 Medical Screening Exam initiated sp3 23:40 Data reviewed: vital signs, nurses notes, EKG. ED course: 33-year-old male with anxiety sp3 attack. I am not highly suspicious of on anxiety component and I have clinically ruled out cardiopulmonary active process, neurological process or any other critical process at this time. Vital signs are normal. We will give alprazolam and obtain EKG. If negative will discharge home to his PCP Dr. Phelan. I have counseled patient on behavioral changes including meditation, yoga and deep breathing as possible tools. Those did not work to consider pharmacological intervention. He will follow-up with his PCP regarding that.. 06/13 23:25 Order name: EKG; Complete Time: 23:25 sp3 06/13 23:25 Order name: EKG - Nurse/Tech; Complete Time: 23:57 sp3 Administered Medications: 23:47 Drug: ALPRAZolam PO Tablet 0.5 mg PO once Route: PO; jb4 06/14 00:07 Follow up: Response: No adverse reaction jb4 Disposition Summary: 06/13/24 23:57 Discharge Ordered Notes: Location: Home sp3 Condition: Stable sp3 Diagnosis - Anxiety disorder, unspecified sp3 Followup: sp3 - With: Private Physician - When: Upon discharge from the Emergency Department - Reason: If symptoms return, Continuance of care Discharge Instructions: - Discharge Summary Sheet sp3 - Panic Attack sp3 - Generalized Anxiety Disorder, Adult sp3 Forms: - Medication Reconciliation Form sp3 - Antibiotic Education sp3 - Prescription Opioid Use sp3 - Patient Portal Instructions sp3 - Leadership Thank You Letter sp3 Signatures: Pako Bundy RN RN jb4 Jin Choi MD MD sp3 Giuliano Bell RN RN bm8
[2024-06-14 00:38] VITALS: TEMP 98.1; O2SAT 98
[2024-06-14 00:40] VITALS: BP 152/93
--- NOTE | 2024-06-14 12:02 | EKG ---
Test Date: 2024-06-13 Test Time: 23:53:46 Educator Senior Clinical: DONNA MEASUREMENT RESULTS: Intervals: Rate: 85 [place]: 142 QRSD: 92 QT: 364 QTc: 433 [place]: P: 46 [place]: 142 QRS: 6 T: 24 INTERPRETIVE STATEMENTS: Normal sinus rhythm Normal ECG Compared to ECG 05/17/2024 06:44:52 No significant changes Electronically Signed On 06-14-24 12:01:34 IOS DEVELOPER by Israel Manuel
== END 2024-06-14 00:07 | disposition home or self-care (01) ==
LOC: ER 22:53
DX: F41.9 Anxiety disorder, unspecified (principal)
CPT/HCPCS: 93005; 99284

== ENCOUNTER 2024-07-06 03:01 | Emergency (ER) | payer OTHER ==
[2024-07-06 04:22] LABS: Absolute Basophils 0.1 K/uL (0-0.5); Absolute Eosinophils 0.4 K/uL (0-0.5); Absolute Lymphocytes (CBC) 2.4 K/uL (0.7-4.9); Absolute Monocytes 0.8 K/uL (0.1-1.3); Absolute Neutrophil 5.7 K/uL (1.8-8.0); Basophils % 0.8 % (0-1.3); Eosinophils % 3.9 % (0-4.4); Hematocrit 41.5 % (39.6-49.0); Hemoglobin 14.9 g/dL (13.6-17.9); Lymphocytes % 25.6 % (15.3-44.8); MCH 31.2 pg (27.0-35.0); MCHC 35.9 g/dL (32.0-36.0); MCV 86.9 fL (80-100); MPV 8.8 fL (7.6-11.3); Monocytes % 8.9 % (3.3-12.3); Neutrophils % 60.8 % (41.7-73.7); Nucleated Red Blood Cells % 0.1 % (0-0); Platelets 284 thou/uL (152-406); RBC Red Blood Cell Count 4.77 M/uL (4.33-5.43); Red Cell Distribution Width 13.5 % (12.1-15.2)
[2024-07-06 04:26] LABS: PT Prothrombin Time 11.8 SECONDS (10-13.0); Protime INR 1.04
[2024-07-06 04:40] LABS: ALT/SGPT 48 U/L (16-61); AST/SGOT 25 U/L (15-37); Albumin 3.6 g/dL (3.4-5.0); Alkaline Phosphatase 79 U/L (45-117); Anion Gap 11.6 mEq/L (5.0-15.0); BUN Blood Urea Nitrogen 17 mg/dL (7-18); Bicarbonate 25 mEq/L (21-32); Bilirubin Direct < 0.2 mg/dL (0-0.2); Bilirubin Indirect, Calculated 0.4 mg/dL (0.2-0.8); Bilirubin Total 0.6 mg/dL (0.2-1.0); Globulin 3.6 g/dL (2.3-3.5); Glomerular Filtration Rate 105 ml/min (=/>90); Glucose Level 117 mg/dL (74-106); Magnesium 1.9 mg/dL (1.6-2.4); NT PRO-BNP 12 pg/mL (<125); Potassium 3.6 mEq/L (3.5-5.1); Protein, Total 7.2 g/dL (6.4-8.2); Sodium Level 139 mEq/L (136-145); Troponin High Sensitivity 6.3 pg/mL (<58.9)
--- NOTE | 2024-07-06 05:24 | ER ---
Nurse's Notes [facility] Name: Emiliano Corona Age: 33 yrs Sex: Male : 1990 Arrival Date: 07/06/2024 Time: 03:01 Bed 15 Private MD: Mic Phelan Diagnosis: Chest pain, unspecified;Acute Left Shoulder Pain Presentation: 07/06 03:07 Chief complaint:. Chief complaint: Patient states: sudden onset of left shoulder and br2 radiates to left arm constant/sharp. Pt was recently seeing a chiropractor for neck pain. pt took ibuprofen 400mg at approx 0230. Coronavirus screen: Client denies travel out of the [place] in the last 14 days. Ebola Screen: Patient denies exposure to infectious person. Initial Sepsis Screen: Does the patient meet any 2 criteria? No. Patient's initial sepsis screen is negative. Does the patient have a suspected source of infection? No. Patient's initial sepsis screen is negative. Risk Assessment: Do you want to hurt yourself or someone else? Patient reports no desire to harm self or others. Onset of symptoms is unknown. 03:07 Method Of Arrival: Ambulatory br2 03:07 Acuity: SE 4 br2 Triage Assessment: 03:10 General: Appears in no apparent distress. comfortable, Behavior is calm, cooperative. br2 Pain:. Historical: - Allergies: 03:10 No Known Allergies; br2 - PMHx: 03:10 Anxiety; br2 - PSHx: 03:10 Appendectomy; Tonsillectomy; br2 - Immunization history:: Adult Immunizations up to date. - Infectious Disease History:: Denies. - Social history:: Smoking status: Patient denies any tobacco usage or history of. Patient/guardian denies using alcohol, street drugs. - Family history:: not pertinent. Screenin:[address] [facility] ED Fall Risk Assessment (Adult) History of falling in the last 3 months, br2 including since admission No falls in past 3 months (0 pts) Confusion or Disorientation No (0 pts) Intoxicated or Sedated No (0 pts) Impaired Gait No (0 pts) Mobility Assist Device Used No (0 pt) Altered Elimination No (0 pt) Score/Fall Risk Level 0 - 2 = Low Risk Oriented to surroundings. Abuse screen: Denies threats or abuse. Denies injuries from another. Nutritional screening: No deficits noted. Tuberculosis screening: No symptoms or risk factors identified. Assessment: 03:25 Reassessment: see triage assessment. Musculoskeletal: Reports pain in left arm. br2 04:30 Reassessment: No changes from previously documented assessment. Patient and/or family rg5 updated on plan of care and expected duration. Pain level reassessed. Patient is alert, oriented x 3, equal unlabored respirations, skin warm/dry/pink. Patient states symptoms have improved. 05:17 Reassessment: Patient and/or family updated on plan of care and expected duration. Pain rg5 level reassessed. Patient is alert, oriented x 3, equal unlabored respirations, skin warm/dry/pink. Patient states symptoms have improved. Vital Signs: 03:07 BP 150 / 96; Pulse 80; Resp 18; Temp 97.1; Pulse Ox 97% ; Weight 154.22 kg; Height 5 br2 ft. 8 in. ; Pain 3/10; 04:05 BP 109 / 69; Pulse 79; Resp 18; Pulse Ox 96% ; rg5 04:42 BP 104 / 64; Pulse 65; Resp 17; Pulse Ox 95% ; br2 03:07 Body Mass Index 51.70 (154.22 kg, 172.72 cm) br2 03:07 Pain Scale: Adult br2 [place] Coma Score: 05:26 Eye Response: spontaneous(4). Motor Response: obeys commands(6). Verbal Response: sp4 oriented(5). Total: 15. ED Course: 03:03 Patient arrived in ED. gm2 03:03 Mic Phelan DO is Private Physician. gm2 03:07 Patient has correct armband on for positive identification. Provided Education on: plan br2 of care. 03:10 Triage completed. br2 03:13 Arm band placed on. br2 03:15 Nitesh Alvarez MD is Attending Physician. sp4 03:24 Candis Grady RN is Primary Nurse. br2 03:58 Inserted saline lock: 20 gauge in right antecubital area, using aseptic technique. br2 Blood collected. Flushed with 10 mL NS. 04:10 XRAY Chest (1 view) In Process Unspecified. EDMS 05:23 Joe Gonzalez MD is Referral Physician. sp4 05:30 No provider procedures requiring assistance completed. IV discontinued, bleeding rg5 controlled, No redness/swelling at site. Pressure dressing applied. Administered Medications: No medications were administered Medication: 03:25 VIS not applicable for this client. br2 Outcome: 05:23 Discharge ordered by . sp4 05:31 Discharged to home ambulatory, rg5 05:31 Condition: stable 05:31 Discharge instructions given to patient, family, Instructed on discharge instructions, follow up and referral plans. Demonstrated understanding of instructions, follow-up care, medications, Prescriptions given X 1, 05:32 Patient left the ED. rg5 Signatures: Dispatcher [employer] EDMS Nietsh Alvarez MD MD sp4 Jeanne Salmon gm2 Wero Becker RN RN rg5 Candis Grady RN RN br2 Corrections: (The following items were deleted from the chart) 03:14 03:07 Chief complaint: Patient states: sudden onset of left shoulder and radiates to br2 left arm constant/sharp br2
--- NOTE | 2024-07-06 05:24 | EDPHYS ---
Physician Documentation [facility] Name: Emiliano Corona Age: 33 yrs Sex: Male : 1990 Arrival Date: 07/06/2024 Time: 03:01 Bed 15 Private MD: Mic Phelan ED Physician Nitesh Alvarez HPI: 07/06 03:15 This 33 yrs old Male presents to ER via Ambulatory with complaints of sp4 Shoulder Pain, Arm Pain. 05:26 33-year-old male presents with acute onset left shoulder pain described as burning. sp4 Spontaneous nonexertional pain. Historical: - Allergies: 03:10 No Known Allergies; br2 - PMHx: 03:10 Anxiety; br2 - PSHx: 03:10 Appendectomy; Tonsillectomy; br2 - Immunization history:: Adult Immunizations up to date. - Infectious Disease History:: Denies. - Social history:: Smoking status: Patient denies any tobacco usage or history of. Patient/guardian denies using alcohol, street drugs. - Family history:: not pertinent. ROS: 05:26 Constitutional: Negative for fever, chills, and weight loss, positive left shoulder sp4 pain 05:26 All other systems are negative, Exam: 05:26 Constitutional: This is a well developed, well nourished patient who is awake, alert, sp4 and in no acute distress. Head/Face: Normocephalic, atraumatic. Eyes: Pupils equal round and reactive to light, extra-ocular motions intact. Lids and lashes normal. Conjunctiva and sclera are not injected. Cornea within normal limits. Periorbital areas with no swelling, redness, or edema. ENT: Nares patent. No nasal discharge, no septal abnormalities noted. Tympanic membranes are normal and external auditory canals are clear. Oropharynx with no redness, swelling, or masses, exudates, or evidence of obstruction, uvula midline. Mucous membranes moist. Neck: Trachea midline, no thyromegaly or masses palpated, and no cervical lymphadenopathy. Supple, full range of motion without nuchal rigidity, or vertebral point tenderness. Chest/axilla: Normal chest wall appearance and motion. Nontender with no deformity. No lesions are appreciated. Cardiovascular: Regular rate and rhythm with a normal S1 and S2. No gallops, murmurs, or rubs. Normal PMI, no JVD. No pulse deficits. Respiratory: Lungs have equal breath sounds bilaterally, clear to auscultation and percussion. No rales, rhonchi or wheezes noted. No increased work of breathing, no retractions or nasal flaring. Abdomen/GI: Soft, with normal bowel sounds. No distension or tympany. No guarding or rebound. No evidence of tenderness throughout. Back: No spinal tenderness. No costovertebral tenderness. Skin: Warm, dry with normal turgor. Normal color with no rashes, no lesions, and no evidence of cellulitis. MS/ Extremity: Pulses equal, no cyanosis. Neurovascular intact. Full, normal range of motion. Neuro: Awake and alert, GCS 15, oriented to person, place, time, and situation. Cranial nerves II-XII grossly intact. Motor strength 5/5 in all extremities. Sensory grossly intact. Psych: Awake, alert, with orientation to person, place and time. Behavior, mood, and affect are within normal limits 05:26 ECG was reviewed by the Attending Physician. EKG at 0 357 normal sinus rhythm rate 88 otherwise normal Vital Signs: 03:07 BP 150 / 96; Pulse 80; Resp 18; Temp 97.1; Pulse Ox 97% ; Weight 154.22 kg; Height 5 br2 ft. 8 in. ; Pain 3/10; 04:05 BP 109 / 69; Pulse 79; Resp 18; Pulse Ox 96% ; rg5 04:42 BP 104 / 64; Pulse 65; Resp 17; Pulse Ox 95% ; br2 03:07 Body Mass Index 51.70 (154.22 kg, 172.72 cm) br2 03:07 Pain Scale: Adult br2 [place] Coma Score: 05:26 Eye Response: spontaneous(4). Motor Response: obeys commands(6). Verbal Response: sp4 oriented(5). Total: 15. MDM: 03:34 Medical Screening Exam initiated sp4 03:57 Differential diagnosis: glenoid fracture, DJD, tendonitis, ACS. Data reviewed: vital sp4 signs, nurses notes, old medical records, lab test result(s), EKG, radiologic studies, plain films. Consideration of Admission/Observation Escalation of care including admission/observation considered. Scoring Tools HEART Score: History: Slightly Suspicious (0) ECG: Normal (0) Age: < or = 45 years (0) Risk Factors: No Risk factors known (0) Troponin: < or = 1 x Normal limit (0) Total Score = 0. ED course: Workup today is normal. Second troponin not necessary. Patient stable for discharge home. In case of recurrent chest pain will advise follow-up with piggyback clerk. 05:26 ED course: Chest Single View CLINICAL HISTORY: CHEST PAIN COMPARISON: None TECHNIQUE: sp4 Single AP view of the chest. FINDINGS: Lung volumes adequate. Cardiac silhouette is normal in size. No pneumothorax. No large pleural effusion. No focal consolidation. No acute bony finding. IMPRESSION: No evidence of acute cardiopulmonary disease. Electronically signed by: Mirela Addison MD. 07/06 03:39 Order name: Basic Metabolic Panel; Complete Time: 05:08 07/06 03:39 Order name: CBC with Diff; Complete Time: 05:08 4 07/06 03:39 Order name: LFT's; Complete Time: 05:08 07/06 03:39 Order name: Magnesium; Complete Time: 05:08 07/06 03:39 Order name: NT PRO-BNP; Complete Time: 05:08 4 07/06 03:39 Order name: PT-INR; Complete Time: 05:08 07/06 03:39 Order name: Troponin HS; Complete Time: 05:08 4 07/06 03:39 Order name: XRAY Chest (1 view) 07/06 03:39 Order name: Cardiac monitoring; Complete Time: 03:53 4 07/06 03:39 Order name: EKG - Nurse/Tech; Complete Time: 04:04 07/06 03:39 Order name: IV Saline Lock; Complete Time: 03:53 07/06 03:39 Order name: Labs collected and sent; Complete Time: 03:54 sp07/06 03:39 Order name: O2 Per Protocol; Complete Time: 03:54 07/06 03:39 Order name: O2 Sat Monitoring; Complete Time: 03:54 EC:57 Rate is 88 beats/min. Rhythm is regular, Normal Sinus Rhythm. QRS [place] is Normal. NM sp4 interval is normal. QRS interval is normal. QT interval is normal. No Q waves. T waves are Normal. No ST changes noted. Clinical impression: Normal ECG. Interpreted by me. Reviewed by me. Administered Medications: No medications were administered Disposition Summary: 07/06/24 05:23 Discharge Ordered Notes: Location: Home sp4 Problem: new sp4 Symptoms: have improved sp4 Condition: Stable sp4 Diagnosis - Chest pain, unspecified sp4 - Acute Left Shoulder Pain sp4 Followup: sp4 - With: Joe Gonzalez MD - When: 7 - 10 days - Reason: Recheck today's complaints Discharge Instructions: - Discharge Summary Sheet sp4 - Nonspecific Chest Pain, Adult, [id number] sp4 Forms: - Patient Portal Instructions sp4 Prescriptions: - methocarbamol 750 mg Oral tablet - take 2 tablets ORAL route every 8 hours for 3 days PRN muscular pain; 30 sp4 tablet; Refills: 0, Product Selection Permitted Signatures: Dispatcher [employer] EDNitesh Espinoza MD MD sp4 Candis Grady RN RN br2 Corrections: (The following items were deleted from the chart) 03:39 03:39 BASIC METABOLIC PANEL+C.LAB.BRZ ordered. EDMS EDMS 03:39 03:39 CBC+H.LAB.BRZ ordered. EDMS EDMS 03:39 03:39 HEPATIC FUNCTION+C.LAB.BRZ ordered. EDMS EDMS 03:39 03:39 MAGNESIUM+C.LAB.BRZ ordered. EDMS EDMS 03:39 03:39 PROBNP+C.LAB.BRZ ordered. EDMS EDMS 03:39 03:39 PROTIME (+INR)+COAG.LAB.BRZ ordered. EDMS EDMS 03:39 03:39 Troponin High Sensitivity+C.LAB.BRZ ordered. EDMS EDMS 03:39 03:39 Chest Single View+RAD.RAD.BRZ ordered. EDMS EDMS
--- NOTE | 2024-07-06 05:54 | RAD REPORT ---
EXAM DESCRIPTION: Chest Single View CLINICAL HISTORY: CHEST PAIN COMPARISON: None TECHNIQUE: Single AP view of the chest. FINDINGS: Lung volumes adequate. Cardiac silhouette is normal in size. No pneumothorax. No large pleural effusion. No focal consolidation. No acute bony finding. IMPRESSION: No evidence of acute cardiopulmonary disease. Electronically signed by: Mirela Addison MD 07/06/2024 05:06 AM CDT RP TYG Due to temporary technical issues with the [employer] reporting system, reports are being carol d by the in-house radiologist without review as a courtesy to ensure prompt reporting the interpreting radiologist is fully responsible for the content of the report. Transcribed Date/Time: 07/06/2024 5:54 AM
[2024-07-06 05:58] VITALS: TEMP 97.1
[2024-07-06 06:09] VITALS: BP 104/64; O2SAT 95
--- NOTE | 2024-07-08 08:46 | EKG ---
Test Date: 2024-07-06 Test Time: 03:57:45 Bindery Machine Operator: QUAN MEASUREMENT RESULTS: Intervals: Rate: 88 [place]: 144 QRSD: 90 QT: 374 QTc: 452 [place]: P: 43 [place]: 144 QRS: 10 T: 37 INTERPRETIVE STATEMENTS: Normal sinus rhythm Normal ECG Compared to ECG 06/13/2024 23:53:46 No significant changes Electronically Signed On 07-08-24 08:38:57 CDT by Israel Manuel
== END 2024-07-06 05:32 | disposition home or self-care (01) ==
LOC: ER 03:01
DX: R07.9 Chest pain, unspecified (principal); M25.512 Pain in left shoulder
CPT/HCPCS: 36415; 71045; 80048; 80076; 83735; 83880; 84484; 85025; 85610; 93005; 99284